=== PATIENT | female | born 1995 | race Caucasian/White ===

== ENCOUNTER 2016-04-26 17:26 | Emergency (ER) | payer BC ==
[~2016-04-26 17:26] MED LIST: ALBU8I INH; AUGM875T PO; AZIT250T3 PO; DOXY10TA PO; MACR100C PO
--- NOTE | 2016-04-26 19:57 | PD ---
HPI Travel History International Travel<30 Days: No Contact w/Intl Traveler<30Days: No Known Affected Area: No History of Present Illness HPI This patient is a 20-year-old 2 para 0010 EDC is July 02, 2016 presently at 30 weeks and 3 days she presents with the chief complaint of preceding decreased movement states however upon arrival the baby is very active no ruptured membranes no vaginal bleeding no cramps no back pain care with Dr. Guzman course significant for nausea and vomiting during the History Past Medical History Narrative Medical No known drug allergies history of asthma and multiple mental disorders Obstetric History Obstetric History Spontaneous AB at 7 weeks Past Surgical History Narrative Surgical Dental surgery Family History Family History: Negative Social History Alcohol Use: No Tobacco Use: No Substance Abuse: No Allergies-Medications (Allergen,Severity, Reaction): Coded Allergies: No Known Allergies (Unverified , 12/08/15) Home Meds Active Scripts Azithromycin 250 Mg Imt728 Mg PO DIRECTED #6 TAB Ref 0 Take 2 tabs (500 mg) on day 1 then 1 tab daily x 4 days. Prov:Terrance Guillen MD 04/02/16 [id number] M1 875 Mg Dif439 Mg PO BID 7 Days Prov:Brian Basilio MD 11/20/15 Diclegis1 Tab 1 Tab Tab2 Tab PO HS 14 Days Prov:Brian Basilio MD 11/20/15 Nitrofurantoin Monohyd Macro (Macrobid)100 Mg Cap1 Tab PO BID #14 CAP Prov:Rene Alfaro MD 11/12/15 Reported Medications Albuterol Sulfate 8 GM Inhaler (Ventolin Hfa)8 Gm Aero2 Puff INH Q4 #1 * SHAKE WELL BEFORE USE * 07/27/13 Review of Systems General / Constitutional: Other (10 point review of systems is negative) Physical Exam Narrative GENERAL: Well-nourished, well-developed patient. Alert oriented 3 and cooperative in no acute distress CARDIOVASCULAR: Regular rate and rhythm without murmurs, gallops, or rubs. RESPIRATORY: Breath sounds equal bilaterally. No accessory muscle use. ABDOMEN/GI: Gravid consistent with 30 weeks' morbidly obese abdomen Gravid to [-] weeks size Fundal Height: [-] GENITOURINARY: Pelvic exam is deferred as the patient has no complaints of labor or ruptured membranes External Genitalia: intact and normal in appearance BUS glands: [-] FHT's: Category: [-] 1 Baseline: [-]130 Reactive: [-] + Variability: [-] Moderate tnit-go-nlnq variability Decels: [-] 0 Data Data Vital Signs Reviewed: Yes Labs Bedside ultrasound is done the baby is breech active positive flexion positive tone Positive breathing Largest pocket is 5.65 x 7.88 Reactive tracing MDM Medical Record Reviewed: Yes (previous record reviewed) Interpretation(s) 20-year-old at 30+ weeks 10 out of 10 biophysical profile Not in labor Most likely perceives decreased movement secondary to an anterior placenta Plan Discharge patient home kick count By mouth fluid hydration Limited activity over the weekend Appointment with Dr. Horner on Friday Diagnosis Diagnosis: Primary Impression: Decreased movement affecting management of in second trimester Additional Impression: 30 weeks gestation of Disposition: 01 DISCHARGE HOME Condition: Stable Patient Instructions: General Instructions, Diet (GEN), Movement (ED) Departure Forms: Tests/Procedures Griselda Fontenot MD Apr 26, 2016 19:57
== END 2016-04-26 22:34 | disposition home or self-care (01) ==
LOC: HOBED 17:26
DX: O36.8130 Decreased fetal movements, third trimester, not applicable or unspecified (principal); Z3A.30 30 weeks gestation of pregnancy
CPT/HCPCS: 76815

== ENCOUNTER 2016-06-03 19:08 | Emergency (ER) | payer BC ==
--- NOTE | 2016-06-03 20:08 | PD ---
HPI Chief Complaint right mid back pain, pubic bone pain Date Seen: Jun 03, 2016 Time Seen: 20:00 Travel History International Travel<30 Days: No Contact w/Intl Traveler<30Days: No Known Affected Area: No History of Present Illness HPI 21 yo at [id number] c/o 3 days of right mid back pain and pubic bone pain. No radiation, denies vaginal bleeding, discharge, dysuria, frequency. Good movement Para: 0 : 2 Miscarriage: 1 History Past Medical History Narrative Medical Mild asthma Past Surgical History Surgical History: No Previous Surgery Family History Family History: Negative Social History Alcohol Use: No Tobacco Use: No Substance Abuse: No Allergies-Medications (Allergen,Severity, Reaction): Coded Allergies: No Known Allergies (Unverified , 12/08/15) Home Meds Active Scripts Azithromycin 250 Mg Pqt260 Mg PO DIRECTED #6 TAB Ref 0 Take 2 tabs (500 mg) on day 1 then 1 tab daily x 4 days. Prov:Terrance Guillen MD 04/02/16 [id number] M1 875 Mg Jds031 Mg PO BID 7 Days Prov:Brian Basilio MD 11/20/15 Diclegis1 Tab 1 Tab Tab2 Tab PO HS 14 Days Prov:Brian Basilio MD 11/20/15 Nitrofurantoin Monohyd Macro (Macrobid)100 Mg Cap1 Tab PO BID #14 CAP Prov:Rene Alfaro MD 11/12/15 Reported Medications Albuterol Sulfate 8 GM Inhaler (Ventolin Hfa)8 Gm Aero2 Puff INH Q4 #1 * SHAKE WELL BEFORE USE * 07/27/13 Review of Systems Except as stated in HPI: all other systems reviewed are Neg Physical Exam Narrative GENERAL: Well-nourished, well-developed patient. SKIN: Warm and dry. HEAD: Normocephalic and atraumatic. EYES: No scleral icterus. No injection or drainage. ENT: No nasal drainage noted. Mucous membranes pink. Airway patent. NECK: Supple, trachea midline. No JVD. CARDIOVASCULAR: Regular rate and rhythm without murmurs, gallops, or rubs. RESPIRATORY: Breath sounds equal bilaterally. No accessory muscle use. BREASTS: Bilateral exam showed no masses , no retractions, no nipple discharge. ABDOMEN/GI: Abdomen soft, non-tender, bowel sounds present, no rebound, no guarding Gravid to [-] weeks size Fundal Height: [-]37 (difficult to ascertain due to habitus) GENITOURINARY: External Genitalia: intact and normal in appearance BUS glands: [-]nl Cervix: [-]posterior Dilatation: [-] closed Effacement: [-] thick Station: [-] high Presentation: [-]vertex Membranes: [intact or ruptured]ballotable Uterine Contractions: [-]absent FHT's: Category: [-] 1 Baseline: [-] 135 Reactive: [-] moderate Variability: [-] good, accels present Decels: [-] absent EXTREMITIES: No cyanosis or edema. BACK: Nontender without obvious deformity. No CVA tenderness. NEUROLOGICAL: Awake and alert. Motor and sensory grossly within normal limits. Five out of 5 muscle strength in all muscle groups. Normal speech. Data Data Vital Signs Reviewed: Yes MDM Plan Discomforts of Followup as scheduled in office Diagnosis Diagnosis: Primary Impression: Pubic bone pain Additional Impressions: 35 weeks gestation of Morbid obesity Disposition: 01 DISCHARGE HOME Lacy Moralez MD Jun 03, 2016 20:08
== END 2016-06-03 20:15 | disposition home or self-care (01) ==
LOC: HOBED 19:08
DX: O26.93 Pregnancy related conditions, unspecified, third trimester (principal); O99.513 Diseases of the respiratory system complicating pregnancy, third trimester; R10.2 Pelvic and perineal pain; J45.909 Unspecified asthma, uncomplicated; Z3A.35 35 weeks gestation of pregnancy
CPT/HCPCS: 59025

== ENCOUNTER 2016-06-16 06:17 | Emergency (ER) | payer BC ==
--- NOTE | 2016-06-16 07:52 | PD ---
HPI Chief Complaint Possible rupture membranes, lower abdominal discomfort Date Seen: Jun 16, 2016 Time Seen: 07:45 Travel History International Travel<30 Days: No Contact w/Intl Traveler<30Days: No Known Affected Area: No History of Present Illness HPI Patient is a 21-year-old 2 para 0 AB 1 at 37-5/7 weeks' gestation who is a patient of Dr. Cervantes. She reports possible leakage of fluid. She is having generalized lower abdominal discomfort which has been increasing over the past several weeks. She reports good movement. No bleeding or irritating vaginal discharge. Para: 0 : 2 Miscarriage: 1 History Past Medical History Medical History: Denies Significant Hx Obstetric History Obstetric History Uncomplicated course Past Surgical History Surgical History: No Previous Surgery Family History Family History: Negative Social History Alcohol Use: No Tobacco Use: No Substance Abuse: No Allergies-Medications (Allergen,Severity, Reaction): Coded Allergies: No Known Allergies (Unverified , 12/08/15) Home Meds Active Scripts Azithromycin 250 Mg Xfx656 Mg PO DIRECTED #6 TAB Ref 0 Take 2 tabs (500 mg) on day 1 then 1 tab daily x 4 days. Prov:Terrance Guillen MD 04/02/16 Amoxicillin & Pot Clavulanate 875 mg Tab (Augmentin 875 mg Tab)875 Mg Ysu865 Mg PO BID 7 Days Prov:Brian Basilio MD 11/20/15 Doxylamine-Pyridoxine (Diclegis)1 Tab Tab2 Tab PO HS 14 Days Prov:Brian Basilio MD 11/20/15 Nitrofurantoin Monohyd Macro (Macrobid)100 Mg Cap1 Tab PO BID #14 CAP Prov:Rene Alfaro MD 11/12/15 Reported Medications Albuterol Sulfate 8 GM Inhaler (Ventolin Hfa)8 Gm Aero2 Puff INH Q4 #1 * SHAKE WELL BEFORE USE * 07/27/13 Review of Systems Except as stated in HPI: all other systems reviewed are Neg Physical Exam Narrative GENERAL: Well-nourished, well-developed patient. SKIN: Warm and dry. HEAD: Normocephalic and atraumatic. EYES: No scleral icterus. No injection or drainage. ENT: No nasal drainage noted. Mucous membranes pink. Airway patent. NECK: Supple, trachea midline. No JVD. CARDIOVASCULAR: Regular rate and rhythm without murmurs, gallops, or rubs. RESPIRATORY: Breath sounds equal bilaterally. No accessory muscle use. BREASTS: Bilateral exam showed no masses , no retractions, no nipple discharge. ABDOMEN/GI: Abdomen soft, non-tender, bowel sounds present, no rebound, no guarding Gravid to [-] weeks size Fundal Height: [-] GENITOURINARY: External Genitalia: intact and normal in appearance BUS glands: [-] Cervix: [-] Dilatation: [-1] Effacement: [-20] Station: [-3-] Presentation: [-] Membranes: [intact Uterine Contractions: [-Rare] FHT's: Category: [1-] Baseline: [-] Reactive: [-] Variability: [-] Decels: [-] EXTREMITIES: No cyanosis or edema. BACK: Nontender without obvious deformity. No CVA tenderness. NEUROLOGICAL: Awake and alert. Motor and sensory grossly within normal limits. Five out of 5 muscle strength in all muscle groups. Normal speech. Data Data Vital Signs Reviewed: Yes MDM Medical Record Reviewed: Yes Narrative Course / MDM Assessment: 37+ week intrauterine with exam ruling out ruptured membranes today. Generalized pelvic discomfort in the third trimester. Plan: Follow up for routine care. Precautions given regarding possible need for return to triage. Diagnosis Diagnosis: Primary Impression: 37 weeks gestation of Additional Impression: Leukorrhea Disposition: 01 DISCHARGE HOME Condition: Good Tucker Middleton MD Jun 16, 2016 07:52
== END 2016-06-16 08:07 | disposition home or self-care (01) ==
LOC: HOBED 06:17
DX: O26.893 Other specified pregnancy related conditions, third trimester (principal); N89.8 Other specified noninflammatory disorders of vagina; Z3A.37 37 weeks gestation of pregnancy
CPT/HCPCS: 59025; 84112

== ENCOUNTER 2016-06-28 05:56 | Inpatient (IN) | payer BC ==
[~2016-06-28] VITALS: Ht 175.3 cm; Wt 128.8 kg
[2016-06-28] VITALS (138 sets, daily range): BP systolic 74–141; BP diastolic 32–114; PULSE 50–197; RESP 18–20; TEMP 98.1–99.5; O2SAT 98–100
[2016-06-28] MEDS ORDERED: LACTATED RINGER'S 1000 ML INJ 1,000 ML IV SCH (06:32)
[2016-06-28] MEDS ORDERED: LACTATED RINGER'S 1000 ML INJ 1,000 ML IV PRN (06:32)
--- NOTE | 2016-06-28 06:40 | HHI.HP ---
HPI Chief Complaint here for induction at 39 plus weeks Date Seen: Jun 28, 2016 Time Seen: 06:30 Travel History International Travel<30 Days: No Contact w/Intl Traveler<30Days: No Known Affected Area: No History of Present Illness HPI 21 yo primaparous patient here for induction at 39 plus weeks doing well with normal Para: 0 : 2 Last Menstrual Period: Jun 28, 2016 Miscarriage: 1 History Past Medical History Medical History: Denies Significant Hx Obstetric History Obstetric History sab x1 Past Surgical History Surgical History: No Previous Surgery Family History Family History: Negative Social History Alcohol Use: No Tobacco Use: No Substance Abuse: No Allergies-Medications (Allergen,Severity, Reaction): Coded Allergies: No Known Allergies (Unverified , 06/16/16) Home Meds Discontinued Reported Medications Albuterol Sulfate 8 GM Inhaler (Ventolin Hfa)8 Gm Aero2 Puff INH Q4 #1 * SHAKE WELL BEFORE USE * 07/27/13 Discontinued Scripts Azithromycin 250 Mg Xpp713 Mg PO DIRECTED #6 TAB Ref 0 Take 2 tabs (500 mg) on day 1 then 1 tab daily x 4 days. Prov:Terrance Guillen MD 04/02/16 Amoxicillin & Pot Clavulanate 875 mg Tab (Augmentin 875 mg Tab)875 Mg Ign738 Mg PO BID 7 Days Prov:Brian Basilio MD 11/20/15 Doxylamine-Pyridoxine (Diclegis)1 Tab Tab2 Tab PO HS 14 Days Prov:Brian Basilio MD 11/20/15 Nitrofurantoin Monohyd Macro (Macrobid)100 Mg Cap1 Tab PO BID #14 CAP Prov:Rene Alfaro MD 11/12/15 Review of Systems Except as stated in HPI: all other systems reviewed are Neg Physical Exam Narrative GENERAL: Well-nourished, well-developed patient. SKIN: Warm and dry. HEAD: Normocephalic and atraumatic. EYES: No scleral icterus. No injection or drainage. ENT: No nasal drainage noted. Mucous membranes pink. Airway patent. NECK: Supple, trachea midline. No JVD. CARDIOVASCULAR: Regular rate and rhythm without murmurs, gallops, or rubs. RESPIRATORY: Breath sounds equal bilaterally. No accessory muscle use. BREASTS: Bilateral exam showed no masses , no retractions, no nipple discharge. ABDOMEN/GI: Abdomen soft, non-tender, bowel sounds present, no rebound, no guarding Gravid to [-] weeks size Fundal Height: [-] GENITOURINARY: External Genitalia: intact and normal in appearance BUS glands: [-] Cervix: [-] Dilatation: [-] Effacement: [-] Station: [-] Presentation: [-] Membranes: [intact or ruptured] Uterine Contractions: [-] FHT's: Category: [-] Baseline: [-] Reactive: [-] Variability: [-] Decels: [-] EXTREMITIES: No cyanosis or edema. BACK: Nontender without obvious deformity. No CVA tenderness. NEUROLOGICAL: Awake and alert. Motor and sensory grossly within normal limits. Five out of 5 muscle strength in all muscle groups. Normal speech. Data Data Vital Signs Reviewed: Yes Orders Admit To Inpatient (06/28/16 ) Code Status (06/28/16 06:32) Vital Signs (Adult) .Per protocol (06/28/16 06:32) ^ Heart (06/28/16 06:32) ^ Amnioinfusion (06/28/16:32) Urinary Catheter Management .ONCE (06/28/16 06:32) Lactated Ringer's 1000 Ml Inj (Lr 1000 M (06/28/16 06:32) Lactated Ringer's 1000 Ml Inj (Lr 1000 M (06/28/16 06:32) Sodium Chlorid 0.9% 500 Ml Inj (Ns 500 M (06/28/16 06:45) Sodium Chlor 0.9% 1000 Ml Inj (Ns 1000 M (06/28/16 06:52) Lidocaine 1% Inj (50 Ml) (Xylocaine 1% I (06/28/16 06:45) Citric Acid-Sodium Citrate Liq (Bicitra (06/28/16 06:45) Fentanyl Inj (Fentanyl Inj) (06/28/16 06:45) Fentanyl Inj (Fentanyl Inj) (06/28/16 06:45) Complete Blood Count With Diff (06/28/16 06:32) Hold Clot (06/28/16 06:32) Abo/Rh Blood Type (06/28/16 06:32) Urinalysis - C+S If Indicated (06/28/16 06:32) Resp Oxygen Non Rebreathe Mask (06/28/16 ) ^ Epidural / Intrathecal Infus (06/28/16 06:32) Oxytocin 30 Units-500ml Premix (Pitocin (06/28/16 06:45) Lidocaine 1% Inj (50 Ml) (Xylocaine 1% I (06/28/16 06:45) Light Mineral Oil (Muri-Lube Oil) (06/28/16 06:45) Inpatient Certification (06/28/16 ) Specimen To Be Collected PRN (06/28/16 06:32) ^ Non Stress Test (06/28/16 06:32) Response To Medication .Post New Med Administration, Reaction (06/28/16 06:32) ^ Discontinue Medication (06/28/16 06:32) Oxytocin Drip (2-2-30) (06/28/16 06:45) Assessment/Plan Problem List: (1) 39 weeks gestation of Assessment and Plan induction GBS negative Discharge Planning pit and AROM Damion Guzman MD Jun 28, 2016 06:40
[2016-06-28] MEDS ORDERED: OXYTOCIN 30 UNITS-500ML PREMIX 500 ML IV ONE (06:45)
[2016-06-28] MEDS ORDERED: LIDOCAINE HCL 1% 50 ML VIAL INFIL PRN (06:45)
[2016-06-28] MEDS ORDERED: CITRIC ACID-SODIUM CITRATE LIQ 30 ML UDC PO SCH (06:45)
[2016-06-28] MEDS ORDERED: OXYTOCIN 30 UNITS-500ML PREMIX 500 ML IV SCH (06:45)
[2016-06-28] MEDS ORDERED: SODIUM CHLORID 0.9% 500 ML INJ 500 ML IV PRN (06:45)
[2016-06-28] MEDS ORDERED: MINERAL OIL 10 ML VIAL TOPICAL PRN (06:45)
[2016-06-28] MEDS ORDERED: LIDOCAINE HCL 1% 50 ML VIAL I-DERMAL PRN (06:45)
[2016-06-28] MEDS ORDERED: SODIUM CHLOR 0.9% 1000 ML INJ 1,000 ML IV PRN (06:52)
[2016-06-28 07:31] LABS: AUTOMATED NEUTROPHIL # 5.3 TH/MM3 (1.8-7.7); BASOPHIL % 0.4 % (0.0-2.0); EOSINOPHIL # 0.1 TH/MM3 (0-0.4); EOSINOPHIL % 1.6 % (0.0-4.0); HEMATOCRIT 35.2 % (35.0-46.0); HEMO FLAGS DIFF FINAL; LYMPH % 28.4 % (9.0-44.0); LYMPHOCYTE # 2.4 TH/MM3 (1.0-4.8); MEAN CELL VOLUME 82.9 FL (80.0-100.0); MEAN CORPUSCULAR HEMOGLOBIN 27.6 PG (27.0-34.0); MEAN CORPUSCULAR HGB CONC 33.3 % (32.0-36.0); MONO % 7.3 % (0.0-8.0); NEUT % 62.3 % (16.0-70.0); PLATELET COUNT 200 TH/MM3 (150-450); RED BLOOD COUNT 4.25 MIL/MM3 (4.00-5.30); RED CELL DISTRIBUTION WIDTH 14.9 % (11.6-17.2); WHITE BLOOD COUNT 8.5 TH/MM3 (4.0-11.0)
[2016-06-28 08:50] LABS: BACTERIA, URINE MOD /hpf; BLOOD, URINE NEG (NEG); COMMENT (UR) CULTURE INDICATED; CULTURE IF INDICATED CULTURE INDICATED; GLUCOSE,URINE NEG (NEG); KETONE, URINE NEG (NEG); NITRITE,URINE NEG (NEG); SQUAMOUS EPITHELIAL CELL URINE 56 /hpf (0-5); URINE COLOR YELLOW (YELLW/STRAW)
[2016-06-28] MEDS ORDERED: fentaNYL 2MCG-BUPIV 0.125% INJ 100 ML ONE (13:49)
[2016-06-28] MEDS ORDERED: DO NOT ADMINISTER ANTICOAGULANTS XX PRN (15:30)
[2016-06-28] MEDS ORDERED: fentaNYL 2MCG-BUPIV 0.125% 100 ML EPIDURAL SCH (15:30)
[2016-06-28] MEDS ORDERED: ePHEDrine/NS 25 MG/5 ML SYR IV PRN (15:30)
[2016-06-28] MEDS ORDERED: NO SYSTEM NARCOTICS XX PRN (15:30)
--- NOTE | 2016-06-28 16:56 | PD.LABORPN ---
Subjective Subjective doing well has epidural now Objective Vital Signs Vital Signs Date Time Temp Pulse Resp B/P Pulse Ox O2 Delivery O2 Flow Rate FiO2 06/28/16 16:22 59 108/59 06/28/16 16:19 66 120/57 06/28/16 16:16 64 108/69 06/28/16 16:15 80 06/28/16 16:13 80 83/52 06/28/16 16:10 73 122/57 06/28/16 16:10 73 06/28/16 16:07 134 118/61 06/28/16 16:05 78 06/28/16 16:04 80 125/54 06/28/16 16:01 67 127/59 06/28/16 16:00 67 06/28/16 15:58 72 108/78 06/28/16 15:55 116/100 06/28/16 15:55 56 06/28/16 15:55 74 06/28/16 15:52 62 06/28/16 15:52 124/55 06/28/16 15:50 75 06/28/16 15:49 132/67 06/28/16 15:49 71 06/28/16 15:46 65 06/28/16 15:46 113/73 06/28/16 15:45 75 06/28/16 15:43 76 114/57 06/28/16 15:40 78 06/28/16 15:40 84 102/71 06/28/16 15:37 78 93/81 06/28/16 15:35 76 06/28/16 15:34 95 115/79 06/28/16 15:31 74 115/65 06/28/16 15:30 66 06/28/16 15:28 85 103/47 06/28/16 15:25 61 121/69 06/28/16 15:25 92 06/28/16 15:22 74 115/56 06/28/16 15:20 86 06/28/16 15:19 82 110/67 06/28/16 15:16 86 113/54 06/28/16 15:15 75 06/28/16 15:13 98/53 06/28/16 15:13 96 06/28/16 15:10 60 06/28/16 15:10 84 108/53 06/28/16 15:08 61 110/32 06/28/16 15:05 62 06/28/16 15:04 97 141/114 06/28/16 15:01 77 127/59 06/28/16 15:00 95 06/28/16 14:58 91 100/59 06/28/16 14:55 96 06/28/16 14:55 66 106/52 06/28/16 14:52 66 112/59 06/28/16 14:50 77 06/28/16 14:49 101 105/57 06/28/16 14:46 72 104/55 06/28/16 14:45 94 06/28/16 14:43 73 108/55 06/28/16 14:40 92 06/28/16 14:40 88 109/51 06/28/16 14:37 92 105/55 06/28/16 14:35 103 06/28/16 14:34 98.1 100 18 103/50 06/28/16 14:31 65 108/41 06/28/16 14:30 78 06/28/16 14:28 104 107/55 06/28/16 14:25 96 88/59 06/28/16 14:25 79 06/28/16 14:22 64 93/50 06/28/16 14:20 84 98 06/28/16 14:19 85 116/54 06/28/16 14:16 80 112/55 06/28/16 14:15 99 100 06/28/16 14:13 84 131/60 06/28/16 14:10 76 06/28/16 14:09 79 120/44 06/28/16 14:01 71 104/45 06/28/16 13:55 106 06/28/16 13:47 67 112/52 06/28/16 13:31 197 126/109 06/28/16 13:16 59 108/52 06/28/16 13:01 59 108/62 06/28/16 12:48 52 109/62 06/28/16 12:40 98.1 20 06/28/16 12:31 62 120/73 06/28/16 12:16 55 122/73 06/28/16 12:01 59 114/63 06/28/16 11:46 50 115/58 06/28/16 11:31 64 110/62 06/28/16 11:16 64 119/67 06/28/16 11:01 60 107/48 06/28/16 10:46 68 116/53 06/28/16 10:31 57 109/61 06/28/16 10:15 98.2 06/28/16 10:01 59 99/52 06/28/16 09:46 70 87/65 06/28/16 09:31 68 98/48 06/28/16 09:16 59 105/54 06/28/16 09:01 65 98/60 06/28/16 08:55 86 86/52 Objective Pelvic Exam: Cervix: [-] Dilatation: 1 Effacement: [-] Station: [-] Presentation: vtx Membranes: AROM Uterine Contractions: [-] FHT's: Category: 1 Baseline: [-] Reactive: [-] Variability: [-] Decels: [-] Assessment/Plan Problem List: (1) 39 weeks gestation of Damion Guzman MD Jun 28, 2016 16:56
[2016-06-29] VITALS (43 sets, daily range): BP systolic 94–126; BP diastolic 42–87; PULSE 56–168; RESP 16–20; TEMP 97.8–100; O2SAT 87–99
--- NOTE | 2016-06-29 00:44 | PD.LABORPN ---
Subjective Subjective patient has reassuring FHT and has fallen off the labor curve. We discussed CS for arrest of dilatation but patient and family want to wait. I am ok with plan of expectant management with this reassuring strip Objective Vital Signs Vital Signs Date Time Temp Pulse Resp B/P Pulse Ox O2 Delivery O2 Flow Rate FiO2 06/29/16 00:00 20 06/28/16 23:46 63 107/65 06/28/16 23:31 66 93/41 06/28/16 23:30 20 06/28/16 23:16 61 93/38 06/28/16 23:01 66 103/38 06/28/16 22:59 99.5 06/28/16 22:46 71 101/46 06/28/16 22:31 75 105/50 06/28/16 22:16 78 133/73 06/28/16 22:01 77 114/57 06/28/16 22:00 98.7 18 06/28/16 21:46 65 107/45 06/28/16 21:31 65 107/47 06/28/16 21:30 18 06/28/16 21:16 72 117/59 06/28/16 21:15 18 06/28/16 21:01 75 110/57 06/28/16 21:00 18 06/28/16 20:46 80 116/62 06/28/16 20:45 18 06/28/16 20:31 68 106/56 06/28/16 20:30 18 06/28/16 20:17 102 113/37 06/28/16 19:43 18 06/28/16 19:43 98.2 06/28/16 19:31 74 124/59 06/28/16 18:47 80 128/53 06/28/16 18:45 71 103/56 06/28/16 18:31 147 74/43 06/28/16 18:16 87 87/44 06/28/16 17:46 83 101/62 06/28/16 17:31 71 115/63 06/28/16 17:25 99.4 18 06/28/16 17:16 68 115/51 06/28/16 17:01 71 115/83 06/28/16 16:46 121/45 Objective Pelvic Exam: Cervix: [-] Dilatation: [-] Effacement: [-] Station: [-] Presentation: [-] Membranes: [intact or ruptured] Uterine Contractions: [-] FHT's: Category: [-] Baseline: [-] Reactive: [-] Variability: [-] Decels: [-] Assessment/Plan Problem List: (1) 39 weeks gestation of Damion Guzman MD Jun 29, 2016 00:44
[2016-06-29] MEDS ORDERED: BUPIVACAINE HCL PF 0.25% 10 ML VIAL ONE (02:16)
[2016-06-29] MEDS ORDERED: OXYTOCIN 10 UNIT/ML AMP ONE ×2 (04:22→04:23)
[2016-06-29] MEDS ORDERED: ceFAZolin INJ 1,000 MG VIAL ONE (04:25)
[2016-06-29] MEDS ORDERED: MEPERIDINE HCL 50 MG/ML VIAL ONE (04:35)
[2016-06-29] MEDS ORDERED: MORPHINE SULFATE PF 5 MG/10 ML VIAL ONE (05:18)
--- NOTE | 2016-06-29 05:55 | PD.OB.DELI ---
Procedure Note Section Procedure Pre Op Diagnosis: (1) 39 weeks gestation of Post Op Diagnosis: (1) 39 weeks gestation of Performed by Damion Guzman Procedure: Primary Low Transverse Sec Indication for delivery: Other (arrest of dilatation) Informed consent obtained: For anesthesia, For procedure Confirmed correct: Patient, Procedure, Time-out taken Anesthesia: Epidural Urinary catheter: Inserted using sterile technique, To dependent drainage Sterile preparation: Duraprep Position: Supine with wedge to right side Operative Features Skin Incision: Pfannenstiel Uterine Incision: Low transverse w/knife / blunt ext Membranes Ruptured: Previously Presentation: Occiput anterior Delivery of infant: Uneventful : Female, Single Weight: 6# 9 oz Status of : Viable Estimated blood loss: 500 Procedure tolerated: Well Maternal Condition: Stable Condition: Stable Damion Guzman MD Jun 29, 2016 05:55
[2016-06-29] MEDS ORDERED: SODIUM CHLORIDE 0.9% FLUSH 5 ML FLUSH IV PRN (06:00)
[2016-06-29] MEDS ORDERED: SIMETHICONE 80 MG CHEWABLE TAB PO PRN (06:00)
[2016-06-29] MEDS ORDERED: KETOROLAC TROMETHAMINE 60 MG/2 ML (IM) VIAL IM PRN (06:00)
[2016-06-29] MEDS ORDERED: OXYTOCIN 30 UNITS-500ML PREMIX 500 ML IV ONE (06:00)
[2016-06-29] MEDS ORDERED: EPIDURAL-DIPHENHYDRAMINE HCL 50 MG CAP PO PRN (08:15)
[2016-06-29] MEDS ORDERED: EPIDURAL-NALOXONE HCL 0.4 MG/ML AMP IV PRN (08:15)
[2016-06-29] MEDS ORDERED: EPIDURAL-DIPHENHYDRAMINE HCL 50 MG/ML VIAL IV PUSH PRN (08:15)
[2016-06-29] MEDS ORDERED: EPIDURAL-DO NOT ADMINISTER ANTICOAGULANTS XX PRN (08:15)
[2016-06-29] MEDS ORDERED: EPIDURAL-NO SYSTEMIC NARCOTICS XX PRN (08:15)
[2016-06-29] MEDS ORDERED: PROMETHAZINE HCL 25 MG TAB PO PRN (08:30)
[2016-06-29] MEDS ORDERED: SODIUM CHLORIDE 0.9% FLUSH 5 ML FLUSH IV SCH (09:00)
[2016-06-29] MEDS ORDERED: LACTATED RINGER'S 1000 ML INJ 1,000 ML IV SCH (10:50)
[2016-06-29] MEDS: PANTOPRAZOLE SODIUM 40 MG VIAL IV PUSH SCH (11:16)
[2016-06-29] MEDS ORDERED: PROCHLORPERAZINE 25 MG SUPP RECTAL PRN (12:00)
[2016-06-29] MEDS ORDERED: OXYTOCIN 30 UNITS-500ML PREMIX 500 ML IV PRN (16:00)
[2016-06-29] MEDS: IBUPROFEN 600 MG TAB PO PRN (21:54)
[2016-06-29] MEDS: oxyCODONE/ACETAMINOPHEN 5 MG/325 MG TAB PO PRN (21:54)
[2016-06-30] MEDS: IBUPROFEN 600 MG TAB PO PRN ×3 (05:27→17:58)
[2016-06-30] MEDS: oxyCODONE/ACETAMINOPHEN 5 MG/325 MG TAB PO PRN ×3 (05:27→17:59)
[2016-06-30 06:58] LABS: AUTOMATED NEUTROPHIL # 9.3 TH/MM3 (1.8-7.7); BASOPHIL % 0.1 % (0.0-2.0); EOSINOPHIL # 0.1 TH/MM3 (0-0.4); EOSINOPHIL % 0.8 % (0.0-4.0); HEMATOCRIT 24.1 % (35.0-46.0); HEMO FLAGS DIFF FINAL; LYMPH % 13.9 % (9.0-44.0); LYMPHOCYTE # 1.7 TH/MM3 (1.0-4.8); MEAN CELL VOLUME 83.1 FL (80.0-100.0); MEAN CORPUSCULAR HEMOGLOBIN 27.8 PG (27.0-34.0); MEAN CORPUSCULAR HGB CONC 33.4 % (32.0-36.0); MONO % 8.2 % (0.0-8.0); PLATELET COUNT 167 TH/MM3 (150-450); WHITE BLOOD COUNT 12.1 TH/MM3 (4.0-11.0)
[2016-06-30 08:00] VITALS: BP 101/58; PULSE 71; RESP 16; TEMP 97.8
--- NOTE | 2016-06-30 10:15 | HHI.OB ---
Subjective Post Day: 1 Remarks doing well post CS. questionable urine production but patient has trouble getting urine in hat so probably estimate is low Objective Vitals/I&O Vital Signs Date Time Temp Pulse Resp B/P Pulse Ox O2 Delivery O2 Flow Rate FiO2 06/29/16 18:30 18 06/29/16 17:11 18 06/29/16 17:00 99.8 91 18 114/57 98 06/29/16 16:30 16 06/29/16 15:30 18 06/29/16 14:30 18 06/29/16 12:56 18 06/29/16 12:08 99.1 77 18 99 06/29/16 12:08 118/67 06/29/16 11:30 16 06/29/16 10:30 18 Objective Remarks GENERAL: Well-nourished, well-developed patient. . ABDOMEN/GI: Abdomen soft, non-tender. Fundus: Firm, non-tender at umbilicus. GENITOURINARY: Light to moderate bleeding. EXTREMITIES: No cyanosis or edema, non-tender, without signs of DVT. Medications and IVs Current Medications Medications (Trade) Dose Ordered Sig/Eugene Route Start Time Stop Time Status Last Admin (NS Flush) 2 ml BID IV 06/29/16 09:00 (NS Flush) 2 ml UNSCH PRN IV 06/29/16 06:00 (Mylicon Chew) 80 mg QID PRN PO 06/29/16 06:00 (Motrin) 600 mg Q6H PRN PO 06/29/16 06:00 06/30/16 05:27 (Percocet 5-325 Mg) 1 tab Q4H PRN PO 06/29/16 06:00 06/29/16 21:54 (Percocet 5-325 Mg) 2 tab Q4H PRN PO 06/29/16 06:00 06/30/16 05:27 (M-M-R Ii Inj) 0.5 ml ONCE ONCE SQ 06/30/16 16:00 06/30/16 16:01 (Boostrix Inj) 0.5 ml ONCE ONCE IM 06/30/16 16:00 06/30/16 16:01 (Phenergan) 25 mg Q4H PRN PO 06/29/16 08:30 3/11/17 08:59 (Compazine Supp) 25 mg Q6H PRN RECTAL 06/29/16 12:00 (Protonix Inj) 40 mg Q24H IV PUSH 06/29/16 11:00 06/29/16 11:16 Assessment/Plan Problem List: (1) 39 weeks gestation of Assessment and Plan S/P CS Discharge Planning DC home ppd#3 pt requesting 07/02 Damion Guzman MD Jun 30, 2016 10:15
[2016-06-30] MEDS: PANTOPRAZOLE SODIUM 40 MG VIAL IV PUSH SCH (11:00)
[2016-06-30 15:00] VITALS: BP 107/63; PULSE 80; RESP 18; TEMP 98.9
[2016-06-30] MEDS ORDERED: MEASLES, MUMPS, RUBELLA VACCINE 0.5 ML VIAL SQ ONE (16:00)
[2016-06-30] MEDS ORDERED: DIPHTH/TETANUS/ACEL PERTUSSIS (BOOSTER) 0.5 ML VIAL/PFS IM ONE (16:00)
[2016-06-30 19:30] VITALS: BP 126/67; PULSE 79; RESP 20; TEMP 98.2
[2016-07-01] MEDS: oxyCODONE/ACETAMINOPHEN 5 MG/325 MG TAB PO PRN ×3 (01:07→17:11)
[2016-07-01] MEDS: IBUPROFEN 600 MG TAB PO PRN ×3 (01:08→17:12)
--- NOTE | 2016-07-01 07:54 | HHI.OB ---
Subjective Post Day: 2 Remarks doing well, incision leaking Objective Vitals/I&O Vital Signs Date Time Temp Pulse Resp B/P Pulse Ox O2 Delivery O2 Flow Rate FiO2 06/30/16 19:30 98.2 79 20 126/67 06/30/16 15:00 98.9 80 18 06/30/16 15:00 107/63 06/30/16 08:00 97.8 71 16 101/58 Objective Remarks GENERAL: Well-nourished, well-developed patient. . ABDOMEN/GI: Abdomen soft, non-tender. Fundus: Firm, non-tender at umbilicus. GENITOURINARY: Light to moderate bleeding. EXTREMITIES: No cyanosis or edema, non-tender, without signs of DVT. Medications and IVs Current Medications Medications (Trade) Dose Ordered Sig/Eugene Route Start Time Stop Time Status Last Admin (NS Flush) 2 ml BID IV 06/29/16 09:00 (NS Flush) 2 ml UNSCH PRN IV 06/29/16 06:00 (Mylicon Chew) 80 mg QID PRN PO 06/29/16 06:00 (Motrin) 600 mg Q6H PRN PO 06/29/16 06:00 07/01/16 01:08 (Percocet 5-325 Mg) 1 tab Q4H PRN PO 06/29/16 06:00 07/01/16 01:07 (Percocet 5-325 Mg) 2 tab Q4H PRN PO 06/29/16 06:00 06/30/16 17:59 (Phenergan) 25 mg Q4H PRN PO 06/29/16 08:30 06/29/16 08:59 (Compazine Supp) 25 mg Q6H PRN RECTAL 06/29/16 12:00 (Protonix Inj) 40 mg Q24H IV PUSH 06/29/16 11:00 06/29/16 11:16 Assessment/Plan Problem List: (1) 39 weeks gestation of Assessment and Plan S/P CS Discharge Planning DC home ppd#3 pt requesting 07/02 Damion Guzman MD Jul 01, 2016 07:54
[2016-07-01 08:00] VITALS: BP 116/73; PULSE 16; PULSE 80; RESP 16; TEMP 98
[2016-07-01] MEDS: PANTOPRAZOLE SODIUM 40 MG VIAL IV PUSH SCH (09:51)
[2016-07-01 21:45] VITALS: BP 119/73; PULSE 73; RESP 20; TEMP 98.3
[2016-07-02] MEDS: IBUPROFEN 600 MG TAB PO PRN ×2 (00:09→11:13)
[2016-07-02] MEDS: oxyCODONE/ACETAMINOPHEN 5 MG/325 MG TAB PO PRN ×3 (00:10→11:13)
[2016-07-02 08:00] VITALS: BP 114/60; PULSE 70; RESP 18; TEMP 98.3
--- NOTE | 2016-07-02 10:37 | HHI.OB ---
Subjective Post Day: 3 Remarks doing well Objective Vitals/I&O Vital Signs Date Time Temp Pulse Resp B/P Pulse Ox O2 Delivery O2 Flow Rate FiO2 07/02/16 08:00 114/60 07/02/16 08:00 98.3 70 18 07/01/16 21:45 98.3 73 20 119/73 Objective Remarks GENERAL: Well-nourished, well-developed patient. . ABDOMEN/GI: Abdomen soft, non-tender. Fundus: Firm, non-tender at umbilicus. GENITOURINARY: Light to moderate bleeding. EXTREMITIES: No cyanosis or edema, non-tender, without signs of DVT. Medications and IVs Current Medications Medications (Trade) Dose Ordered Sig/Eugene Route Start Time Stop Time Status Last Admin (NS Flush) 2 ml BID IV 06/29/16 09:00 (NS Flush) 2 ml UNSCH PRN IV 06/29/16 06:00 (Mylicon Chew) 80 mg QID PRN PO 06/29/16 06:00 (Motrin) 600 mg Q6H PRN PO 06/29/16 06:00 07/02/16 00:09 (Percocet 5-325 Mg) 1 tab Q4H PRN PO 06/29/16 06:00 07/01/16 09:35 (Percocet 5-325 Mg) 2 tab Q4H PRN PO 06/29/16 06:00 07/02/16 05:17 (Phenergan) 25 mg Q4H PRN PO 06/29/16 08:30 06/29/16 08:59 (Compazine Supp) 25 mg Q6H PRN RECTAL 06/29/16 12:00 (Protonix Inj) 40 mg Q24H IV PUSH 06/29/16 11:00 06/29/16 11:16 Assessment/Plan Problem List: (1) 39 weeks gestation of Assessment and Plan S/P CS Discharge Planning DC home ppd#3 today Damion Guzman MD Jul 02, 2016 10:37
[2016-07-02] MEDS ORDERED: OXYC1TAB63 PO (10:38)
--- NOTE | 2016-07-02 10:39 | HHI.DCPOC ---
Discharge Care Plan Diagnosis: (1) delivery delivered Report Symptoms to Your Doctor -Temperate above 100.5 degrees -Redness, of incision or excessive or foul smelling drainage -Unusual pain or calf pain -Increased vaginal bleeding -Painful or difficulty urinating -Feelings of extreme sadness or anxiety after 2 weeks Goals to Promote Your Health * To prevent worsening of your condition and complications * To maintain your health at the optimal level Directions to Meet Your Goals Take your medications as prescribed Follow your dietary instruction Follow activity as directed Ensure plenty of rest for recovery Drink fluids for hydration Keep your appointments as scheduled Take your immunizations and boosters as scheduled If your symptoms worsen call your PCP, if no PCP go to Urgent Care Center or Emergency Room Smoking is Dangerous to Your Health. Avoid second hand smoke Call the 24-hour crisis hotline for domestic abuse at Damion Guzman MD Jul 02, 2016 10:39
--- NOTE | 2016-07-02 10:43 | HHI.DS ---
Admission Date Jun 28, 2016 at 05:56 Discharge Date: Jul 02, 2016 Admitting Diagnosis Diagnosis: (1) delivery delivered Diagnosis: Principal : Primary : Female, Single Brief History 21 yo primaparous patient here for induction at 39 plus weeks doing well with normal Hospital Course doing well after CS Pt Condition on Discharge: Good Discharge Disposition: Discharge Home Discharge Instructions Diet Instructions: As Tolerated, No Restrictions Activities You Can Perform: Regular-No Restrictions, Pelvic Rest Activities to Avoid: Driving for 24 hrs Follow up Referrals: [place] [facility] - 2 Weeks @ [facility] with Damion Guzman MD New Medications: Oxycodone-Acetaminophen (Oxycodone-Acetaminophen) 5-325 mg Tab 2 TAB PO Q4H PRN PAIN SCALE 6 TO 10 #30 TAB Damion Guzman MD Jul 02, 2016 10:43
--- NOTE | 2016-07-03 08:25 | MP ---
cc: RYAN GUZMAN M.D. DATE OF SURGERY: 06/29/2016 PROCEDURE Primary low transverse section. PREOPERATIVE DIAGNOSIS Arrest of dilatation at 5 cm. POSTOPERATIVE DIAGNOSIS Arrest of dilatation at [address] Ryan Guzman ESTIMATED BLOOD LOSS 500 cc. COMPLICATIONS None. FINDINGS Live female infant, Apgars 9 and 9, weight 6 pounds 10 ounces. PROCEDURE IN DETAIL After informed consent the patient was taken to the operating room where she was placed under epidural anesthesia by Dr. Ingram. She had her epidural anesthesia dosed and was under adequate anesthesia. Estrada catheter was draining well. A timeout was taken for the procedure and the patient. After everyone agreed and the instruments were all available and the patient was prepped and draped, a Pfannenstiel skin incision was carried sharply through the skin to the fascia. The fascia was nicked in the midline. The incision was extended laterally using Flynn scissors. The rectus muscle was dissected away from the fascia with sharp and blunt dissection. The rectus muscle was in the midline. The peritoneum was entered bluntly with a finger. The incision was extended laterally using blunt traction. A bladder flap was created by dissecting the bladder off the lower uterine segment. A low transverse uterine incision was then made, carried sharply into the uterine cavity. Clear fluid was noted. The incision was extended laterally using blunt traction. A hand was placed into the uterus. The infant's head was guided through the incision. Caput was noted and the 's head was socked down in the pelvis. This was pulled up out of the pelvis. Using fundal pressure the infant delivered. The shoulders were delivered and the nose and mouth were suctioned well. The cord was clamped and cut and the was handed to pediatrics in attendance. Cord blood was collected. The placenta was delivered manually. The uterus was exteriorized and wiped free from all remaining products of conception. The uterine incision was then closed with a running locked stitch of chromic suture. Good hemostasis was achieved. There was a laceration that went down into the vagina on the left side. This had been closed before the other incision was closed. An imbricating layer was placed for strength and hemostasis. The uterus was placed back in the abdomen, noted to be hemostatic including the laceration into the vagina. At this point the fascia was closed with Vicryl suture. The subcutaneous tissue was closed with Vicryl suture and the skin was closed with subcuticular stitch of Monocryl. The patient tolerated the procedure well. She was taken to the recovery room in stable condition. Lap and instrument counts were reported as correct and each layer was hemostatic prior to closure. MD WOL[place]ANG [place]/SEUN /6:48 AM /7:15 AM
== END 2016-07-02 14:53 | disposition home or self-care (01) | DRG 766 ==
LOC: H2EA 05:56 → H1EA 06-29 07:34
PROVIDERS: ADMIT Obstetrics & Gynecology; ATTEND Obstetrics & Gynecology
PROC: 10907ZC Drainage of Amniotic Fluid, Therapeutic from Products of Conception, Via Natural or Artificial Opening (ICD-10-PCS; 2016-06-28)
PROC: 10D00Z1 Extraction of Products of Conception, Low, Open Approach (ICD-10-PCS; principal; 2016-06-29)
DX: O62.0 Primary inadequate contractions (principal); O61.0 Failed medical induction of labor; Z37.0 Single live birth; Z3A.39 39 weeks gestation of pregnancy
CPT/HCPCS: 81001; 85025; 86900; 86901; 87086; C9113; J0690; J1885; J2175; J2274; J2590; J7120; Q0169

== ENCOUNTER 2016-07-05 00:07 | Emergency (ER) | payer BC ==
[~2016-07-05] VITALS: Ht 175.3 cm; Wt 126.0 kg
[~2016-07-05 00:07] MED LIST changes: -ALBU8I INH; -AUGM875T PO; -AZIT250T3 PO; -DOXY10TA PO; -MACR100C PO; +OXYC1TAB63 PO
[2016-07-05 00:08] VITALS: BP 138/64; PULSE 112; RESP 18; TEMP 98.3; O2SAT 98
[2016-07-05] MEDS ORDERED: SODIUM CHLOR 0.9% 1000 ML INJ 1,000 ML IV ONE (01:16)
[2016-07-05] MEDS ORDERED: SODIUM CHLORIDE 0.9% FLUSH 5 ML FLUSH IVF PRN (01:30)
[2016-07-05 01:42] LABS: AUTOMATED NEUTROPHIL # 4.8 TH/MM3 (1.8-7.7); BASOPHIL # 0.1 TH/MM3 (0-0.2); BASOPHIL % 0.7 % (0.0-2.0); EOSINOPHIL # 0.3 TH/MM3 (0-0.4); EOSINOPHIL % 3.7 % (0.0-4.0); HEMATOCRIT 27.9 % (35.0-46.0); HEMO FLAGS AUTO DIFF; LYMPH % 25.6 % (9.0-44.0); MEAN CELL VOLUME 82.5 FL (80.0-100.0); MEAN CORPUSCULAR HEMOGLOBIN 26.5 PG (27.0-34.0); MEAN CORPUSCULAR HGB CONC 32.1 % (32.0-36.0); MONO % 9.3 % (0.0-8.0); NEUT % 60.7 % (16.0-70.0); PLATELET COUNT 277 TH/MM3 (150-450); RED BLOOD COUNT 3.38 MIL/MM3 (4.00-5.30); RED CELL DISTRIBUTION WIDTH 14.8 % (11.6-17.2); WHITE BLOOD COUNT 7.9 TH/MM3 (4.0-11.0)
--- NOTE | 2016-07-05 01:54 | PD ---
HPI Chief Complaint: Edema Time Seen by Provider: 01:02 Travel History International Travel<30 days: No Contact w/Intl Traveler<30days: No Traveled to known affect area: No History of Present Illness HPI Patient is a 21-year-old female who presents to emergency room with complaints of abdominal pain with increased vaginal clots with lower extremity swelling. Patient reports that she had a performed by Dr. Manning on Friday, reports that she had no complications from her surgery as well as her . Patient reports that she is discharged from the hospital on Friday with a prescription for Percocets. Patient reports that she was told that if she passed large clots, she was to come to the emergency room for evaluation. Patient reports that she passed 3 large clots tonight starting around 10 PM tonight. Patient reports increased lower abdominal pain and cramping with her symptoms. Patient reports that she has also noticed increased swelling to her legs bilaterally. Patient denies any fevers or chills, denies chest pain or shortness breath. PFSH Past Medical History Asthma: Yes Bipolar Disorder: Yes Anxiety: Yes Depression: Yes Diminished Hearing: No Psychiatric: Yes (PTSD, PANIC DISORDER) Ulcer: Yes Tetanus Vaccination: < 5 Years Influenza Vaccination: No ?: Not LMP: DELIVERED 06/29/16 : 2 Para: 1 Miscarriage: 1 Past Surgical History Section: Yes Oral Surgery: Yes (wisdom teeth removal ) Social History Alcohol Use: No Tobacco Use: No Substance Use: No Allergies-Medications (Allergen,Severity, Reaction): Coded Allergies: No Known Allergies (Unverified , 07/05/16) Reported Meds & Prescriptions Reported Meds & Active Scripts Active Macrobid (Nitrofurantoin Monoh/Nitrofur Macro) 100 Mg Cap 100 Mg PO BID 10 Days Oxycodone-Acetaminophen 5-325 mg Tab 2 Tab PO Q4H PRN Review of Systems General / Constitutional: No: Fever Eyes: No: Visual changes HENT: No: Headaches Cardiovascular: No: Chest Pain or Discomfort Respiratory: No: Shortness of Breath Gastrointestinal: Positive: Abdominal Pain Genitourinary: No: Dysuria Musculoskeletal: Positive: Edema, No: Pain Skin: No Rash Neurologic: No: Weakness Psychiatric: No: Depression Endocrine: No: Polydipsia Hematologic/Lymphatic: No: Easy Bruising Physical Exam Narrative GENERAL: No acute distress, nontoxic SKIN: Warm and dry. HEAD: Atraumatic. Normocephalic. EYES: Pupils equal and round. No scleral icterus. No injection or drainage. ENT: No nasal bleeding or discharge. Mucous membranes pink and moist. NECK: Trachea midline. No JVD. CARDIOVASCULAR: Regular rate and rhythm. No murmur appreciated. RESPIRATORY: No accessory muscle use. Clear to auscultation. Breath sounds equal bilaterally. GASTROINTESTINAL: Abdomen soft, tenderness to lower abdomen, incisions are clean , dry, intact with no drainage or no signs of infection MUSCULOSKELETAL: No obvious deformities. No clubbing. No cyanosis. +1 edema bilaterally NEUROLOGICAL: Awake and alert. No obvious cranial nerve deficits. Motor grossly within normal limits. Normal speech. PSYCHIATRIC: Appropriate mood and affect; insight and judgment normal. Data Data Last Documented VS Vital Signs Date Time Temp Pulse Resp B/P Pulse Ox O2 Delivery O2 Flow Rate FiO2 07/05/16 05:04 80 18 125/64 97 07/05/16 02:02 Room Air 07/05/16 00:08 98.3 Orders Complete Blood Count With Diff (07/05/16 01:16) Comprehensive Metabolic Panel (07/05/16 01:16) Urinalysis - C+S If Indicated (07/05/16 01:16) Iv Access Insert/Monitor (07/05/16 01:16) Sodium Chloride 0.9% Flush (Ns Flush) (07/05/16 01:30) Sodium Chlor 0.9% 1000 Ml Inj (Ns 1000 M (07/05/16 01:16) Us Leg Venous Doppler Bilat (07/05/16 ) Ct Abd/Pel W/O Iv Contrast (07/05/16 01:56) Urine Culture (07/05/16 03:40) Ceftriaxone Inj (Rocephin Inj) (07/05/16 04:30) Complete Blood Count With Diff (07/05/16 05:06) Labs Laboratory Tests Test 07/05/16 07/05/16 07/05/16 01:26 03:40 05:10 White Blood Count 7.9 TH/MM3 7.4 TH/MM3 Red Blood Count 3.38 MIL/MM3 2.97 MIL/MM3 Hemoglobin 9.0 GM/DL 8.2 GM/DL Hematocrit 27.9 % 24.8 % Mean Corpuscular Volume 82.5 FL 83.4 FL Mean Corpuscular Hemoglobin 26.5 PG 27.6 PG Mean Corpuscular Hemoglobin 32.1 % 33.0 % Concent Red Cell Distribution Width 14.8 % 15.0 % Platelet Count 277 TH/MM3 247 TH/MM3 Mean Platelet Volume 8.2 FL 8.0 FL Neutrophils (%) (Auto) 60.7 % 58.8 % Lymphocytes (%) (Auto) 25.6 % 27.0 % Monocytes (%) (Auto) 9.3 % 9.4 % Eosinophils (%) (Auto) 3.7 % 4.0 % Basophils (%) (Auto) 0.7 % 0.8 % Neutrophils # (Auto) 4.8 TH/MM3 4.4 TH/MM3 Lymphocytes # (Auto) 2.0 TH/MM3 2.0 TH/MM3 Monocytes # (Auto) 0.7 TH/MM3 0.7 TH/MM3 Eosinophils # (Auto) 0.3 TH/MM3 0.3 TH/MM3 Basophils # (Auto) 0.1 TH/MM3 0.1 TH/MM3 CBC Comment AUTO DIFF AUTO DIFF Differential Comment AUTO DIFF CONFIRMED Platelet Estimate NORMAL Platelet Morphology Comment NORMAL Sodium Level 142 MEQ/L Potassium Level 3.6 MEQ/L Chloride Level 105 MEQ/L Carbon Dioxide Level 27.7 MEQ/L Anion Gap 9 MEQ/L Blood Urea Nitrogen 8 MG/DL Creatinine 0.61 MG/DL Estimat Glomerular Filtration 122 ML/MIN Rate Random Glucose 88 MG/DL Calcium Level 8.7 MG/DL Total Bilirubin 0.5 MG/DL Aspartate Amino Transf 13 U/L (AST/SGOT) Alanine Aminotransferase 12 U/L (ALT/SGPT) Alkaline Phosphatase 82 U/L Total Protein 6.4 GM/DL Albumin 2.3 GM/DL Urine Color YELLOW Urine Turbidity HAZY Urine pH 6.5 Urine Specific [place] 1.015 Urine Protein TRACE mg/dL Urine Glucose (UA) NEG mg/dL Urine Ketones NEG mg/dL Urine Occult Blood LARGE Urine Nitrite NEG Urine Bilirubin NEG Urine Urobilinogen 2.0 MG/DL Urine Leukocyte Esterase SMALL Urine RBC 5 /hpf Urine WBC 12 /hpf Urine Squamous Epithelial 4 /hpf Cells Urine Renal Epithelial Cells <1 /hpf Urine Bacteria RARE /hpf Urine Mucus FEW /lpf Microscopic Urinalysis Comment CULTURE INDICATED MDM Medical Decision Making Medical Screen Exam Complete: Yes Emergency Medical Condition: Yes Interpretation(s) Vital Signs Date Time Temp Pulse Resp B/P Pulse Ox O2 Delivery O2 Flow Rate FiO2 07/05/16 00:26 18 100 Room Air 07/05/16 00:08 98.3 112 18 138/64 98 Room Air Differential Diagnosis Postop infection, irregular vaginal bleeding, DVT Narrative Course Patient is a 21-year-old female who presents to emergency room for evaluation of passing blood clots tonight. Patient had a on Friday with Dr. Horner, reports that she was discharged to home on Friday. Patient was concerned as she passed 3 large blood clots today, also reports that she has noticed increased swelling to her legs. Pelvic ultrasound as well as ultrasound of legs ordered. US tech unable to see anything transabdominally and is not allowed to perform pelvic US 6 weeks after delivery even if patient had a . will obtain ct of abdomen CBC & BMP Diagram 07/05/16 01:26 Last Impressions Abdomen/Pelvis CT 07/05/16 0156 Signed Impressions: Service Date/Time: Tuesday, July 05, 2016 02:46 - CONCLUSION: 1. Postoperative changes on recent section with changes in the lower anterior abdominal wall as above which can be seen postoperatively. Enlarged uterus with 4 cm area of possible clotted blood in the lower uterine segment. Trace free fluid. No free air. Mild constipation. Lucien Gann MD Lower Extremity Ultrasound 07/05/16 0000 Signed Impressions: Service Date/Time: Tuesday, July 05, 2016 01:39 - CONCLUSION: Normal examination. Lucien Gann MD Patient reevaluated, patient feeling much better at this time. I reviewed all labs and all studies with patient detail. Discussed need for repeat outside 1 week if swelling persists. Patient will call her [facility] first thing in the morning for earliest follow-up appointment. She will return to the emergency room if symptoms progress or worsen or return. Patient was given a copy of her labs and studies at discharge. Signs and symptoms of when to return to the emergency room was reviewed with patient and her in detail. hgb on 06/30/16 was 8.1, hgb tonight 9.[address] Morejon - pt safe to be discharged to home with outpt follow up, ct findings are normal post op findings repeat hgb 8.2 - hemoglobin drop most likely dilutional in nature from receiving IV fluids as she received 1 L IV fluids as well as IV antibiotics while in the emergency room. Diagnosis Primary Impression: Vaginal bleeding Additional Impressions: Anemia Qualified Code: D64.9 - Anemia, unspecified type Leg swelling UTI (urinary tract infection) Qualified Code: N30.01 - Acute cystitis with hematuria Patient Instructions: General Instructions Additional Instructions: Please provide patient with a copy of her lab work and studies at discharge Please follow-up with all cultures from today Please call your [facility] first thing in the morning for earliest follow-up Please return to the emergency room if symptoms progress or worsen Please have your ultrasound of her legs repeated in 1 week if swelling persists Med/Other Pt SpecificInfo: Prescription(s) given Scripts Nitrofurantoin Monohydrate Macrocrystals (Macrobid)100 Mg [id number] Mg PO BID 10 Days Ref 0 Prov:Glory Lucas DO 07/05/16 Disposition: DISCHARGE HOME Condition: Stable Glory Lucas DO Jul 05, 2016 01:54
[2016-07-05 02:02] VITALS: BP 127/74; PULSE 68; RESP 16; O2SAT 96
[2016-07-05 02:04] LABS: ALT (GPT) 12 U/L (10-53); ANION GAP 9 MEQ/L (5-15); AST (GOT) 13 U/L (15-37); BICARBONATE 27.7 MEQ/L (21.0-32.0); BLOOD UREA NITROGEN 8 MG/DL (7-18); CHLORIDE 105 MEQ/L (98-107); GLOMERULAR FILTRATION RATE 122 ML/MIN (>89); POTASSIUM 3.6 MEQ/L (3.5-5.1); SODIUM (NA) 142 MEQ/L (136-145)
[2016-07-05 02:06] LABS: ALKALINE PHOSPHATASE 82 U/L (45-117); TOTAL BILIRUBIN ADULT 0.5 MG/DL (0.2-1.0)
[2016-07-05 02:10] LABS: PLATELET ESTIMATE SMEAR NORMAL (NORMAL); PLATELET MORPHOLOGY NORMAL (NORMAL); SCAN/DIFF AUTO DIFF CONFIRMED
--- NOTE | 2016-07-05 02:20 | RADRPT ---
EXAM DATE/TIME: 07/05/2016 01:39 [facility] COMPARISON: No previous studies available for comparison. INDICATIONS : Bilateral leg swelling. MEDICAL HISTORY : 5 days post pardum. SURGICAL HISTORY : section. ENCOUNTER: Initial ACUITY: 1 day PAIN SCORE: 0/10 LOCATION: Bilateral legs. TECHNIQUE: Venous ultrasound of the left and right leg was performed from the inguinal ligament to the proximal calf. Real-time, color Doppler and spectral tracing, compression and augmentation techniques were us ed. FINDINGS: RIGHT LEG: There is normal compressibility of the deep venous system from the inguinal region to the proximal ca lf. No echogenic clot is seen in the lumen of the common femoral, femoral, popliteal, and posterior tibial veins. There is a normal response of the venous system to proximal and distal augmentation an d respiration. LEFT LEG: There is normal compressibility of the deep venous system from the inguinal region to the proximal ca lf. No echogenic clot is seen in the lumen of the common femoral, femoral, popliteal, and posterior tibial veins. There is a normal response of the venous system to proximal and distal augmentation an d respiration. CONCLUSION: Normal examination. Lucien Gann MD on July 05, 2016 at 2:18 Board Certified Radiologist. This report was verified electronically.
--- NOTE | 2016-07-05 03:13 | RADRPT ---
EXAM DATE/TIME: 07/05/2016 02:46 [facility] COMPARISON: No previous studies available for comparison. INDICATIONS : Lower abdominal pain status post section. ORAL CONTRAST: No oral contrast ingested. RADIATION DOSE: 17.02 CTDIvol (mGy) MEDICAL HISTORY : None SURGICAL HISTORY : section. ENCOUNTER: Initial ACUITY: 1 day PAIN SCALE: 10/10 LOCATION: lower quadrant abdomen TECHNIQUE: Volumetric scanning of the abdomen and pelvis was performed. Using automated exposure control and ad justment of the mA and/or kV according to patient size, radiation dose was kept as low as reasonably achievable to obtain optimal diagnostic quality images. FINDINGS: Per history, patient is postoperative section. There is some subcutaneous fat stranding, sma ll locules of air and a small amount of fluid in the lower anterior abdominal wall characteristic of recent postoperative changes of section. There uterus is enlarged from recent . The re is a 4 cm area of increased attenuation in the lower uterine segment which may represent a small a mount of hemorrhage within the endometrial cavity. Lung bases are clear. No acute findings in the liver, spleen, adrenals, kidneys or pancreas. No calci fied gallstones or biliary ductal dilatation. There is mild constipation. No acute bony abnormalities . CONCLUSION: 1. Postoperative changes on recent section with changes in the lower anterior abdominal wall as above which can be seen postoperatively. Enlarged uterus with 4 cm area of possible cl otted blood in the lower uterine segment. Trace free fluid. No free air. Mild constipation. Lucien Gann MD on July 05, 2016 at 3:05 Board Certified Radiologist. This report was verified electronically.
[2016-07-05 04:02] LABS: BACTERIA, URINE RARE /hpf; BLOOD, URINE LARGE (NEG); COMMENT (UR) CULTURE INDICATED; CULTURE IF INDICATED CULTURE INDICATED; GLUCOSE,URINE NEG (NEG); KETONE, URINE NEG (NEG); MUCUS URINE FEW /lpf (OCC); NITRITE,URINE NEG (NEG); PH, URINE 6.5 (5.0-8.5); RENAL EPITHELIAL CELLS <1 /hpf; SQUAMOUS EPITHELIAL CELL URINE 4 /hpf (0-5); URINE COLOR YELLOW (YELLW/STRAW)
[2016-07-05] MEDS ORDERED: cefTRIAXone INJ 1,000 MG in SODIUM CHLORIDE 0.9% INJ 100 ML IV ONE (04:30)
[2016-07-05] MEDS ORDERED: MACR100C2 PO (05:01)
[2016-07-05 05:04] VITALS: BP 125/64
[2016-07-05 05:26] LABS: AUTOMATED NEUTROPHIL # 4.4 TH/MM3 (1.8-7.7); BASOPHIL # 0.1 TH/MM3 (0-0.2); BASOPHIL % 0.8 % (0.0-2.0); EOSINOPHIL # 0.3 TH/MM3 (0-0.4); HEMATOCRIT 24.8 % (35.0-46.0); MEAN CELL VOLUME 83.4 FL (80.0-100.0); MEAN CORPUSCULAR HEMOGLOBIN 27.6 PG (27.0-34.0); MONO % 9.4 % (0.0-8.0); NEUT % 58.8 % (16.0-70.0); PLATELET COUNT 247 TH/MM3 (150-450); RED BLOOD COUNT 2.97 MIL/MM3 (4.00-5.30); WHITE BLOOD COUNT 7.4 TH/MM3 (4.0-11.0)
[2016-07-05 05:30] LABS: HEMO FLAGS AUTO DIFF
[2016-07-05 06:41] LABS: BANDS 4 % (0-6); EOSINOPHILS 4 % (0-4); METAMYELOCYTES 1 % (0-1); MYELOCYTES 2 % (0-0); POLYS (SEG NEUTROPHILS) 60 % (16-70); WBC DIFF SAMPLE 100
[2016-07-05 06:42] LABS: PLATELET ESTIMATE SMEAR NORMAL (NORMAL); PLATELET MORPHOLOGY NORMAL (NORMAL); SCAN/DIFF FINAL DIFF MANUAL
== END 2016-07-05 05:48 | disposition home or self-care (01) ==
LOC: NEPC 00:07
DX: N93.9 Abnormal uterine and vaginal bleeding, unspecified (principal); D64.9 Anemia, unspecified; M79.89 Other specified soft tissue disorders; N39.0 Urinary tract infection, site not specified; J45.909 Unspecified asthma, uncomplicated
CPT/HCPCS: 74176; 80053; 81001; 85007; 85025; 85027; 87086; 93970; 96361; 96365; 99284; J0696; J7030

== ENCOUNTER 2016-08-03 06:41 | Emergency (ER) | payer BC ==
[~2016-08-03] VITALS: Ht 177.8 cm; Wt 116.0 kg
[~2016-08-03 06:41] MED LIST changes: +MACR100C2 PO
[2016-08-03 06:43] VITALS: BP 149/78; PULSE 57; RESP 15; TEMP 98; O2SAT 100
[2016-08-03] MEDS ORDERED: SODIUM CHLORIDE 0.9% FLUSH 10 ML FLUSH IVF PRN (07:30)
--- NOTE | 2016-08-03 07:32 | PD ---
HPI Chief Complaint: Chest Pain Time Seen by Provider: 07:27 Travel History International Travel<30 days: No Contact w/Intl Traveler<30days: No Traveled to known affect area: No History of Present Illness HPI This is a 21-year-old female who was previously healthy who status post normal spontaneous vaginal delivery one month prior, who presents today with complaints of chest pain since yesterday. Patient reports it's substernal and radiates to the right and left in the lower chest wall. She states it's worse with movement. She also reports it's worth with taking a deep breath. Patient reports it as sharp and pressure-like. She denies any nausea. She does state that she has shortness of breath but when asked about shortness of breath it's really pain when she breathes. Patient also states that she took a urine test and it was slightly positive. She is sexually active. There is no calf swelling or tenderness. She does not smoke. She has had no long car rides. She is currently not taking any control pills. PFSH Past Medical History Asthma: Yes Bipolar Disorder: Yes Anxiety: Yes Depression: Yes Diminished Hearing: No Psychiatric: Yes (PTSD, PANIC DISORDER) Ulcer: Yes ?: Unknown LMP: DELIVERED 06/29/16 : 2 Para: 1 Miscarriage: 1 Past Surgical History Section: Yes Oral Surgery: Yes (wisdom teeth removal ) Social History Alcohol Use: No Tobacco Use: No Substance Use: No Allergies-Medications (Allergen,Severity, Reaction): Coded Allergies: No Known Allergies (Unverified , 08/03/16) Reported Meds & Prescriptions Reported Meds & Active Scripts Active Macrobid (Nitrofurantoin Monoh/Nitrofur Macro) 100 Mg Cap 100 Mg PO BID 10 Days Oxycodone-Acetaminophen 5-325 mg Tab 2 Tab PO Q4H PRN Review of Systems Except as stated in HPI: all other systems reviewed are Neg General / Constitutional: No: Fever, Chills HENT: No: Headaches, Lightheadedness Cardiovascular: Positive: Chest Pain or Discomfort, No: Palpitations Respiratory: Positive: Pleuritic Pain, No: Cough, Shortness of Breath Gastrointestinal: No: Nausea, Vomiting, Abdominal Pain Genitourinary: Positive: Other (reports "slight" positive urine ), No : Frequency, Dysuria Musculoskeletal: Positive: Pain (in chest wall and), No: Weakness ( back.) Neurologic: No: Weakness, Dizziness, Focal Abnormalities, Headache Physical Exam Narrative GENERAL: Well-nourished, well-developed patient, in no acute respiratory distress. SKIN: Focused skin assessment warm/dry. HEAD: Normocephalic/atraumatic. EYES: No scleral icterus. No injection or drainage. NECK: Supple, trachea midline. CARDIOVASCULAR: Regular rate and rhythm without murmurs, gallops, or rubs. RESPIRATORY: Breath sounds equal bilaterally. No accessory muscle use. GASTROINTESTINAL: Abdomen soft, non-tender, nondistended. MUSCULOSKELETAL: No cyanosis, or edema. No calf tenderness, Homans sign. NEUROLOGICAL: Awake and alert. Cranial nerves II through XII intact. Motor grossly within normal limits. Five out of 5 muscle strength in all muscle groups. Normal speech. Data Data Last Documented VS Vital Signs Date Time Temp Pulse Resp B/P Pulse Ox O2 Delivery O2 Flow Rate FiO2 08/03/16 09:12 61 18 121/62 96 Room Air 124/69 08/03/16 06:43 98.0 Orders Electrocardiogram (08/03/16 ) Basic Metabolic Panel (Bmp) (08/03/16 07:27) Ckmb (Isoenzyme) Profile (08/03/16 07:27) Complete Blood Count With Diff (08/03/16 07:27) D-Dimer (08/03/16 07:27) Magnesium (Mg) (08/03/16 07:27) Prothrombin Time / Inr (Pt) (08/03/16 07:27) Act Partial Throm Time (Ptt) (08/03/16 07:27) Troponin I (08/03/16 07:27) Ecg Monitoring (08/03/16 07:27) Bilateral Bp Monitoring (08/03/16 07:27) Iv Access Insert/Monitor (08/03/16 07:27) Oximetry (08/03/16 07:27) Oxygen Administration (08/03/16 07:27) Sodium Chloride 0.9% Flush (Ns Flush) (08/03/16 07:30) Ed Urine Pregnancytest Poc (08/03/16 07:27) Chest, Single Ap (08/03/16 07:55) Ketorolac Inj (Toradol Inj) (08/03/16 08:00) Ct Pulmonary Angiogram (08/03/16 08:31) Iohexol 350 Inj (Omnipaque 350 Inj) (08/03/16 09:54) Labs Laboratory Tests Test 08/03/16 07:35 White Blood Count 7.8 TH/MM3 Red Blood Count 4.46 MIL/MM3 Hemoglobin 11.5 GM/DL Hematocrit 35.5 % Mean Corpuscular Volume 79.5 FL Mean Corpuscular Hemoglobin 25.7 PG Mean Corpuscular Hemoglobin 32.4 % Concent Red Cell Distribution Width 15.9 % Platelet Count 307 TH/MM3 Mean Platelet Volume 8.5 FL Neutrophils (%) (Auto) 66.6 % Lymphocytes (%) (Auto) 23.3 % Monocytes (%) (Auto) 6.4 % Eosinophils (%) (Auto) 3.1 % Basophils (%) (Auto) 0.6 % Neutrophils # (Auto) 5.2 TH/MM3 Lymphocytes # (Auto) 1.8 TH/MM3 Monocytes # (Auto) 0.5 TH/MM3 Eosinophils # (Auto) 0.2 TH/MM3 Basophils # (Auto) 0.0 TH/MM3 CBC Comment DIFF FINAL Differential Comment Prothrombin Time 10.5 SEC Prothromb Time International 1.0 RATIO Ratio Activated Partial 26.6 SEC Thromboplast Time D-Dimer Quantitative (PE/DVT) 1.12 MG/L FEU Sodium Level 140 MEQ/L Potassium Level 3.8 MEQ/L Chloride Level 104 MEQ/L Carbon Dioxide Level 27.6 MEQ/L Anion Gap 8 MEQ/L Blood Urea Nitrogen 9 MG/DL Creatinine 0.86 MG/DL Estimat Glomerular Filtration 82 ML/MIN Rate Random Glucose 102 MG/DL Calcium Level 8.9 MG/DL Magnesium Level 2.2 MG/DL Total Creatine Kinase 88 U/L Troponin I LESS THAN 0.02 NG/ML MDM Medical Decision Making Medical Screen Exam Complete: Yes Emergency Medical Condition: Yes Differential Diagnosis ACS versus pulmonary embolism versus Musca skeletal pain Narrative Course A 1-year-old female who is one month , presents today with complaints of chest pain with pleuritic nature. The patient's cardiac enzymes and EKG show no evidence of acute process. The patient's d-dimer was elevated. CT angiogram shows no evidence of pulmonary embolus. I I did medicate the patient with Toradol which she states helped with her discomfort. We will send her home with 41/2 days of Toradol, and milligrams. She also be given a prescription for Skelaxin for muscle relaxer. She is instructed to avoid heavy lifting. Diagnosis Primary Impression: Atypical chest pain Additional Impression: suspected musculoskeletal strain of the chest wall Additional Instructions: Return of worse pain, fevers, chills, or any other reason that concerned her. Med/Other Pt SpecificInfo: Prescription(s) given Scripts Metaxalone (Skelaxin)800 Mg [id number] Mg PO TID #15 TAB Ref 0 Prov:Daniel Valencia MD 08/03/16 Ketorolac 10 Mg Tab10 Mg PO BID #9 TAB Ref 0 Prov:Daniel Valencia MD 08/03/16 Disposition: 01 DISCHARGE HOME Condition: Stable Daniel Valencia MD Aug 03, 2016 07:32
[2016-08-03 07:45] VITALS: O2SAT 97
[2016-08-03] MEDS ORDERED: KETOROLAC TROMETHAMINE 30 MG/ML (IVP) VIAL IV PUSH ONE (08:00)
[2016-08-03 08:08] LABS: AUTOMATED NEUTROPHIL # 5.2 TH/MM3 (1.8-7.7); BASOPHIL % 0.6 % (0.0-2.0); EOSINOPHIL # 0.2 TH/MM3 (0-0.4); EOSINOPHIL % 3.1 % (0.0-4.0); HEMATOCRIT 35.5 % (35.0-46.0); HEMO FLAGS DIFF FINAL; LYMPH % 23.3 % (9.0-44.0); LYMPHOCYTE # 1.8 TH/MM3 (1.0-4.8); MEAN CELL VOLUME 79.5 FL (80.0-100.0); MEAN CORPUSCULAR HEMOGLOBIN 25.7 PG (27.0-34.0); MEAN CORPUSCULAR HGB CONC 32.4 % (32.0-36.0); MONO % 6.4 % (0.0-8.0); NEUT % 66.6 % (16.0-70.0); PLATELET COUNT 307 TH/MM3 (150-450); RED BLOOD COUNT 4.46 MIL/MM3 (4.00-5.30); RED CELL DISTRIBUTION WIDTH 15.9 % (11.6-17.2); WHITE BLOOD COUNT 7.8 TH/MM3 (4.0-11.0)
[2016-08-03 08:20] LABS: APTT (PATIENT) 26.6 SEC (24.3-30.1); PROTHROMBIN TIME - PATIENT 10.5 SEC (9.8-11.6)
[2016-08-03 08:26] LABS: ANION GAP 8 MEQ/L (5-15); BICARBONATE 27.6 MEQ/L (21.0-32.0); BLOOD UREA NITROGEN 9 MG/DL (7-18); CHLORIDE 104 MEQ/L (98-107); GLOMERULAR FILTRATION RATE 82 ML/MIN (>89); MAGNESIUM 2.2 MG/DL (1.5-2.5); POTASSIUM 3.8 MEQ/L (3.5-5.1); SODIUM (NA) 140 MEQ/L (136-145)
[2016-08-03 08:30] VITALS: BP 124/69; PULSE 61; RESP 18; O2SAT 96
--- NOTE | 2016-08-03 08:43 | RADRPT ---
EXAM DATE/TIME: 08/03/2016 08:16 [facility] COMPARISON: CHEST, AP & LAT, April 02, 2016, 4:17. INDICATIONS : Chest pain and shortness of breath. MEDICAL HISTORY : Asthma. SURGICAL HISTORY : None. ENCOUNTER: Initial ACUITY: 1 day PAIN SCORE: 10/10 LOCATION: chest FINDINGS: The lungs are clear without infiltrate, nodule, or mass. There is no appreciable pleural effusion fo r technique. Heart and mediastinum are unremarkable. CONCLUSION: No acute cardiopulmonary disease. Shin Sethi MD on August 03, 2016 at 8:40 Board Certified Radiologist. This report was verified electronically.
[2016-08-03 08:59] LABS: CREATINE KINASE 88 U/L (26-192)
[2016-08-03 09:12] VITALS: BP_SYST 121; BP_SYST 124; BP_DIAS 62; BP_DIAS 69; PULSE 61; RESP 18; O2SAT 96
[2016-08-03] MEDS ORDERED: IOHEXOL 350 MG/ML 10 ML VIAL (for RAD DIAG) IV ONE (09:54)
--- NOTE | 2016-08-03 10:19 | RADRPT ---
EXAM DATE/TIME: 08/03/2016 09:53 [place] COMPARISON: CHEST SINGLE AP, August 03, 2016, 8:16. INDICATIONS : Substernal chest pain for two days. IV CONTRAST: 84 cc Omnipaque 350 (iohexol) IV RADIATION DOSE: 23.20 CTDIvol (mGy) MEDICAL HISTORY : None SURGICAL HISTORY : section. ENCOUNTER: Initial ACUITY: 2 days PAIN SCALE: 6/10 LOCATION: substernal chest TECHNIQUE: Volumetric scanning of the chest was performed using a pulmonary embolism protocol MIP images were re constructed. Using automated exposure control and adjustment of the mA and/or kV according to patien t size, radiation dose was kept as low as reasonably achievable to obtain optimal diagnostic quality images. FINDINGS: The lungs are clear without infiltrate, nodule, or mass. There is no pleural effusion. No appreciab le pathological adenopathy is seen within the mediastinum. There is no evidence for PE for technique. There is a tubular structure artifactual in appearance overlapping the patient's stomach and there i s no NG tube on the patient's chest x-ray. The etiology for this is not certain. CONCLUSION: Unremarkable study. Shin Sethi MD on August 03, 2016 at 10:12 Board Certified Radiologist. This report was verified electronically.
[2016-08-03] MEDS ORDERED: KETO10 PO (10:48)
[2016-08-03] MEDS ORDERED: META800T81 PO (10:48)
[2016-08-03 11:18] VITALS: RESP 16
[2016-08-03 11:30] VITALS: BP 124/64
--- NOTE | 2016-08-03 14:27 | EKG ---
Date Performed: 08/03/2016 Time Performed: 07:25:45 PTAGE: 21 years EKG: SINUS BRADYCARDIA WITH SINUS ARRHYTHMIA BORDERLINE ECG NO PREVIOUS TRACING DOCTOR: Mundo Starks Interpretating Date/Time 08/03/2016 14:27:15
== END 2016-08-03 11:32 | disposition home or self-care (01) ==
LOC: NEPE 06:41
DX: O90.89 Other complications of the puerperium, not elsewhere classified (principal); R07.89 Other chest pain; R79.1 Abnormal coagulation profile; R94.31 Abnormal electrocardiogram [ECG] [EKG]; Z87.09 Personal history of other diseases of the respiratory system; Z86.59 Personal history of other mental and behavioral disorders; Z87.19 Personal history of other diseases of the digestive system
CPT/HCPCS: 71010; 71275; 80048; 82550; 83735; 84484; 84703; 85025; 85379; 85610; 85730; 93005; 96374; 99284; J1885; Q9967

== ENCOUNTER 2016-12-10 13:52 | Emergency (ER) | payer BC ==
[~2016-12-10] VITALS: Ht 172.7 cm; Wt 120.0 kg
[~2016-12-10 13:52] MED LIST changes: +KETO10 PO; +META800T81 PO
[2016-12-10 13:55] VITALS: BP 134/70; PULSE 62; RESP 15; TEMP 98.7; O2SAT 100
--- NOTE | 2016-12-10 19:01 | PD ---
HPI Chief Complaint: Fall Time Seen by Provider: 18:30 Travel History International Travel<30 days: No Contact w/Intl Traveler<30days: No Traveled to known affect area: No History of Present Illness HPI Patient is a 21 female presents emergency department for evaluation of abdominal pain at all. Patient states she fell down a few stairs impacting her abdomen. Denies any vaginal bleeding loss of fluid. She's been feeling well enough to eat a large meal prior to me seeing her. She states she is still feeling baby move. Also complaining of some thoracic back pain. Denies loss consciousness denies any head injury and neck injury. PFSH Past Medical History Asthma: Yes Bipolar Disorder: Yes Anxiety: Yes Depression: Yes Diminished Hearing: No Psychiatric: Yes (PTSD, PANIC DISORDER) Respiratory: Yes (ASTHMA) Immunizations Current: Yes Ulcer: Yes Tetanus Vaccination: Unknown Influenza Vaccination: No ?: : 2 Para: 1 Miscarriage: 1 Past Surgical History Section: Yes Oral Surgery: Yes (wisdom teeth removal ) Social History Alcohol Use: No Tobacco Use: No Substance Use: No Allergies-Medications (Allergen,Severity, Reaction): Coded Allergies: No Known Allergies (Unverified , 08/03/16) Reported Meds & Prescriptions Reported Meds & Active Scripts Active Macrobid (Nitrofurantoin Monoh/Nitrofur Macro) 100 Mg Cap 100 Mg PO BID 10 Days Review of Systems Except as stated in HPI: all other systems reviewed are Neg Physical Exam Narrative GENERAL: Well-developed well-nourished no obvious distress SKIN: Focused skin assessment warm/dry. HEAD: Atraumatic. Normocephalic. EYES: Pupils equal and round. No scleral icterus. No injection or drainage. ENT: No nasal bleeding or discharge. Mucous membranes pink and moist. NECK: Trachea midline. No JVD. CARDIOVASCULAR: Regular rate and rhythm. No murmur appreciated. RESPIRATORY: No accessory muscle use. Clear to auscultation. Breath sounds equal bilaterally. GASTROINTESTINAL: Abdomen soft, non-tender, nondistended. Hepatic and splenic margins not palpable. Gravid abdomen, nontender, no rebound no percussive tenderness. MUSCULOSKELETAL: No obvious deformities. No clubbing. No cyanosis. No edema. Minimal T-spine tenderness. Just left of midline. NEUROLOGICAL: Awake and alert. No obvious cranial nerve deficits. Motor grossly within normal limits. Normal speech. PSYCHIATRIC: Appropriate mood and affect; insight and judgment normal. Data Data Last Documented VS Vital Signs Date Time Temp Pulse Resp B/P (MAP) Pulse Ox O2 Delivery O2 Flow Rate FiO2 12/10/16 20:07 12/10/16 18:56 98 Room Air 12/10/16 13:55 98.7 62 15 Orders Orders Urinalysis - C+S If Indicated (12/10/16 18:30) Ed Urine Pregnancytest Poc (12/10/16 18:30) Ed Urine Pregnancytest Poc (12/10/16 18:42) Ed Poc Ultrasound (12/10/16 18:49) Urine Culture (12/10/16 18:40) Labs Laboratory Tests Test 12/10/16 18:40 Urine Color YELLOW Urine Turbidity CLOUDY Urine pH 6.0 Urine Specific [place] 1.028 Urine Protein 30 mg/dL Urine Glucose (UA) NEG mg/dL Urine Ketones 150 mg/dL Urine Occult Blood NEG Urine Nitrite POS Urine Bilirubin NEG Urine Urobilinogen LESS THAN 2.0 MG/DL Urine Leukocyte Esterase MOD Urine RBC 7 /hpf Urine WBC 17 /hpf Urine Squamous Epithelial Cells 12 /hpf Urine Amorphous Sediment RARE Urine Bacteria MANY /hpf Urine Mucus MANY /lpf Microscopic Urinalysis Comment CULTURE INDICATED MDM Medical Decision Making Medical Screen Exam Complete: Yes Emergency Medical Condition: Yes Differential Diagnosis Neck injury, abdominal injury, , abdominal pain and . Narrative Course Patient roomed emergency department, bedside ultrasound was reassuring. Patient on pelvic exam and declined. She has felt well enough to eat after her injury. She was offered imaging of her back but at this time I think the risks to the fetus outweigh pretest probability. Think she is very low likelihood for bony back injury. Discussed follow-up with a primary care physician or OB/ SENIOR [employer]. Discussed return to ED criteria. There is no indication for nonstress testing, her neck and head were cleared by Reform CT head rolls and Nexus criteria. Procedures Procedure Narrative Bedside ultrasound transabdominal ultrasound: Views obtained of the uterus shows a single intrauterine approximately 15w0d. FHT to 163. Diagnosis Primary Impression: Abdominal pain affecting Additional Impressions: Fall Asymptomatic bacteriuria Med/Other Pt SpecificInfo: Prescription(s) given Scripts Nitrofurantoin Monohydrate Macrocrystals (Macrobid) 100 Mg Cap 100 MG PO BID for Infection for 10 Days, CAP 0 Refills Prov: Fam Davis MD 12/10/16 Disposition: 01 DISCHARGE HOME Condition: Stable Fam Davis MD Dec 10, 2016 19:01
[2016-12-10 19:24] LABS: BACTERIA, URINE MANY /hpf; BLOOD, URINE NEG (NEG); COMMENT (UR) CULTURE INDICATED; CULTURE IF INDICATED CULTURE INDICATED; GLUCOSE,URINE NEG (NEG); KETONE, URINE 150 mg/dL (NEG); MUCUS URINE MANY /lpf (OCC); NITRITE,URINE POS (NEG); SQUAMOUS EPITHELIAL CELL URINE 12 /hpf (0-5); URINE COLOR YELLOW (YELLW/STRAW)
[2016-12-10] MEDS ORDERED: MACR100C2 PO (19:32)
== END 2016-12-10 21:58 | disposition home or self-care (01) ==
LOC: NEPD 13:52
DX: Z04.3 Encounter for examination and observation following other accident (principal); R10.84 Generalized abdominal pain; O23.42 Unspecified infection of urinary tract in pregnancy, second trimester; B96.20 Unspecified Escherichia coli [E. coli] as the cause of diseases classified elsewhere; Z3A.15 15 weeks gestation of pregnancy; W10.9XXA Fall (on) (from) unspecified stairs and steps, initial encounter
CPT/HCPCS: 81001; 84703; 87077; 87086; 87186; 99284

== ENCOUNTER 2017-01-02 17:52 | Emergency (ER) | payer BC ==
[~2017-01-02 17:52] MED LIST changes: -KETO10 PO; -META800T81 PO; -OXYC1TAB63 PO
--- NOTE | 2017-01-02 19:39 | PD ---
HPI Chief Complaint the pt says she passed a quarter size blood clot in the shower today Date Seen: Jan 02, 2017 Time Seen: 19:30 Travel History International Travel<30 Days: No Contact w/Intl Traveler<30Days: No Known Affected Area: No History of Present Illness HPI Patient 21-year-old white female at [address] Horner for care who presents complaining of bleeding today. Patient states she passed a quarter size blood clot in the shower today, she had no bleeding before or after that. She has no pain now. No leakage of clear fluid. heart tones present 140 Weeks Gestation: 17 Para: 1 : 3 History Obstetric History Obstetric History One vaginal delivery 1 early loss Social History Alcohol Use: No Tobacco Use: No Substance Abuse: No Allergies-Medications (Allergen,Severity, Reaction): Coded Allergies: No Known Allergies (Unverified , 08/03/16) Home Meds Active Scripts Nitrofurantoin Monohydrate Macrocrystals (Macrobid) 100 Mg Cap, 100 MG PO BID for Infection for 10 Days, CAP 0 Refills Prov:Fam Davis MD 12/10/16 Review of Systems General / Constitutional: No: Fever, Weight Gain, Chills, Other Eyes: No: Diploplia, Blurred Vision, Visual changes, Pain, Photophobia HENT: No: Headaches, Vertigo, Lightheadedness Cardiovascular: No: Irregular Rhythm, Chest Pain or Discomfort, Palpitations, Tachycardia, Syncope, Varicosities, Edema, Cyanosis Respiratory: No: Cough, Short of Breath, Other Gastrointestinal: No: Nausea, Vomiting, Diarrhea Genitourinary: No: Decreased Urinary Output, Oliguria Musculoskeletal: No: Limited ROM, Weakness, Cramping, Edema, Pain Skin: No Rash, No Itching, No Dryness, No Lumps, No Change in Pigmentation, No Change in Nails, No Alopecia, No Lesions Neurologic: No: Weakness, Dizziness, Syncope, Focal Abnormalities, Coordination Problem, Headache, Slurred Speech, Seizures Psychiatric: No: Depression, Suicidal Ideations, Homicidal Ideation Endocrine: No: Heat Intolerance, Cold Intolerance, Polydipsia, Polyuria, Other Physical Exam Narrative GENERAL: Well-nourished, obese patient. SKIN: Warm and dry. HEAD: Normocephalic and atraumatic. EYES: No scleral icterus. No injection or drainage. ENT: No nasal drainage noted. Mucous membranes pink. Airway patent. NECK: Supple, trachea midline. No JVD. CARDIOVASCULAR: Regular rate and rhythm without murmurs, gallops, or rubs. RESPIRATORY: Breath sounds equal bilaterally. No accessory muscle use. BREASTS: Bilateral exam showed no masses , no retractions, no nipple discharge. ABDOMEN/GI: Abdomen soft, non-tender, bowel sounds present, no rebound, no guarding Gravid to [17-] weeks size Fundal Height: [17-] GENITOURINARY: External Genitalia: intact and normal in appearance Speculum exam done tonight--no blood seen in the vagina cervix is normal appearance no infection no lesion no discharge or infection Cervix: [Closed-] Dilatation: [Closed-] Effacement: [-] Thick Station: [-3] Presentation: [-] Membranes: [intact or ruptured] FHT's: 140s EXTREMITIES: No cyanosis or edema. BACK: Nontender without obvious deformity. No CVA tenderness. NEUROLOGICAL: Awake and alert. Motor and sensory grossly within normal limits. Five out of 5 muscle strength in all muscle groups. Normal speech. MDM Interpretation(s) Patient is 21-year-old white female at 17 weeks gestation who presents combining of vaginal bleeding today. Patient's past a moderate-sized blood clot when she was in the shower. She has no other bleeding before or after that. She has no pain no leakage of clear fluid. heart tones 140s. Presentation was moving some furniture today by herself and straining and pulling and may have aggravated things get her bleeding Plan Plan the patient to be at bedrest over the next day or 2 try not to be lifting her baby in all the items and thinks that she is to carry around for that groceries etc. she is to return for significant vaginal bleeding. Unfortunately anything touching the cervix could cause her to spot including exam night as well as intercourse. Diagnosis Diagnosis: Primary Impression: 17 weeks gestation of Additional Impression: Spotting affecting in second trimester Disposition: 01 DISCHARGE HOME Condition: Stable Roger Earl II, MD Jan 02, 2017 19:39
== END 2017-01-02 19:38 | disposition home or self-care (01) ==
LOC: HOBED 17:52
DX: O26.852 Spotting complicating pregnancy, second trimester (principal); Z3A.17 17 weeks gestation of pregnancy; Z79.899 Other long term (current) drug therapy
CPT/HCPCS: 99283

== ENCOUNTER 2017-02-07 18:51 | Emergency (ER) | payer BC ==
--- NOTE | 2017-02-07 19:45 | PD ---
HPI Chief Complaint 21-year-old 3 para 1 with an EDC of June 09 and an estimated gestational age of 23 weeks who comes today after minor abdominal trauma where she fell against her kitchen counter. She denies bleeding, leakage of fluid or cramping. Date Seen: Feb 07, 2017 Time Seen: 19:40 Travel History International Travel<30 Days: No Contact w/Intl Traveler<30Days: No Known Affected Area: No History Past Medical History Narrative Medical Mild asthma for which she uses albuterol Obstetric History Obstetric History Prior for failure to progress Current is cared for by Dr. Horner. It has been uncomplicated to this point. Morbid obesity Past Surgical History Narrative Surgical Family History Family History: Negative Social History Alcohol Use: No Tobacco Use: No Substance Abuse: No Allergies-Medications (Allergen,Severity, Reaction): Coded Allergies: No Known Allergies (Unverified , 08/03/16) Home Meds Active Scripts Nitrofurantoin Monohydrate Macrocrystals (Macrobid) 100 Mg Cap, 100 MG PO BID for Infection for 10 Days, CAP 0 Refills Prov:Fam Davis MD 12/10/16 Review of Systems Except as stated in HPI: all other systems reviewed are Neg Physical Exam Narrative GENERAL: Morbidly obese, well-developed patient. SKIN: Warm and dry. HEAD: Normocephalic and atraumatic. EYES: No scleral icterus. No injection or drainage. ENT: No nasal drainage noted. Mucous membranes pink. Airway patent. NECK: Supple, trachea midline. No JVD. CARDIOVASCULAR: Regular rate and rhythm without murmurs, gallops, or rubs. RESPIRATORY: Breath sounds equal bilaterally. No accessory muscle use. ABDOMEN/GI: Abdomen soft, non-tender, bowel sounds present, no rebound, no guarding Gravid to [-] weeks size Fundal Height: [U +2-] GENITOURINARY: External Genitalia: intact and normal in appearance BUS glands: [-] Cervix: [-] Dilatation: [-] Effacement: [-] Station: [-] Presentation: [-] Membranes: [intact or ruptured] Uterine Contractions: [-] FHT's: Category: [-] Baseline: [-140] Reactive: [-] Variability: [Moderate-] Decels: [-] EXTREMITIES: No cyanosis or edema. BACK: Nontender without obvious deformity. No CVA tenderness. NEUROLOGICAL: Awake and alert. Motor and sensory grossly within normal limits. Five out of 5 muscle strength in all muscle groups. Normal speech. Data Data Vital Signs Reviewed: Yes MDM Medical Record Reviewed: Yes Narrative Course / MDM Assessment: 23 week intrauterine with very mild abdominal trauma, Rh+ Plan: Reassurance was given. She'll follow up Friday for follow-up care. Diagnosis Diagnosis: Primary Impression: 22 weeks gestation of Additional Impression: abdominal trauma Disposition: DISCHARGE HOME Condition: Good Tucker Middleton MD Feb 07, 2017 19:45
== END 2017-02-07 22:03 | disposition home or self-care (01) ==
LOC: HOBED 18:51
DX: O9A.212 Injury, poisoning and certain other consequences of external causes complicating pregnancy, second trimester (principal); S39.91XA Unspecified injury of abdomen, initial encounter; W19.XXXA Unspecified fall, initial encounter; Y92.000 Kitchen of unspecified non-institutional (private) residence as the place of occurrence of the external cause; Z3A.23 23 weeks gestation of pregnancy
CPT/HCPCS: 99283

== ENCOUNTER 2017-02-24 18:40 | Emergency (ER) | payer BC ==
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
== END 2017-02-24 21:36 | disposition home or self-care (01) ==
LOC: HOBED 18:40
DX: O26.892 Other specified pregnancy related conditions, second trimester (principal); Z3A.25 25 weeks gestation of pregnancy
CPT/HCPCS: 59025; 84112

== ENCOUNTER 2017-03-16 00:28 | Emergency (ER) | payer BC ==
[~2017-03-16] VITALS: Ht 177.8 cm; Wt 125.0 kg
[2017-03-16 00:30] VITALS: BP 138/73; PULSE 68; RESP 16; TEMP 98.6; O2SAT 98
[2017-03-16] MEDS ORDERED: PERC5TAB12 PO (01:05)
--- NOTE | 2017-03-16 01:05 | PD ---
HPI Chief Complaint: Oral / Dental Pain or Problem Time Seen by Provider: 00:52 Travel History International Travel<30 days: No Contact w/Intl Traveler<30days: No Traveled to known affect area: No History of Present Illness HPI 22-year-old female with a history of dental filling complains of pain since the filling. She has follow-up with her dentist in about 5 days. She took one 5 mg /325 mg tablet of Percocet about 4 hours ago and reports minimal pain relief. No fever or the pain radiates to the left ear and into the left anterior lower jaw. No trauma that she can remember. She started amoxicillin 2 days ago after going to the [facility]. PFSH Past Medical History Asthma: Yes Bipolar Disorder: Yes Anxiety: Yes Depression: Yes Diminished Hearing: No Psychiatric: Yes (PTSD, PANIC DISORDER) Respiratory: Yes (ASTHMA) Immunizations Current: Yes Ulcer: Yes ?: : 3 Para: 1 Miscarriage: 1 Past Surgical History Section: Yes Oral Surgery: Yes (wisdom teeth removal ) Social History Alcohol Use: No Tobacco Use: No Substance Use: No Allergies-Medications (Allergen,Severity, Reaction): Coded Allergies: No Known Allergies (Unverified Adverse Reaction, Unknown, 03/16/17) Reported Meds & Prescriptions Reported Meds & Active Scripts Active Percocet (Oxycodone-Acetaminophen) 5-325 mg Tab 1-2 Tab PO BID PRN Macrobid (Nitrofurantoin Monoh/Nitrofur Macro) 100 Mg Cap 100 Mg PO BID 10 Days Review of Systems General / Constitutional: No: Fever Eyes: No: Diploplia HENT: No: Ear Discharge, Earache Physical Exam Narrative GENERAL: 22 yo F, WNWD, NAD DENTITION: No focus of tenderness. Denition in good repair. SKIN: Warm and dry. HEAD: Normocephalic. EYES: No scleral icterus. No injection or drainage. NECK: Supple, trachea midline. No JVD or lymphadenopathy. CARDIOVASCULAR: Regular rate and rhythm without murmurs, gallops, or rubs. RESPIRATORY: Breath sounds equal bilaterally. No accessory muscle use. Data Data Last Documented VS Vital Signs Date Time Temp Pulse Resp B/P (MAP) Pulse Ox O2 Delivery O2 Flow Rate FiO2 03/16/17 01:06 03/16/17 00:30 98.6 68 16 98 Room Air Vital Signs Date Time Temp Pulse Resp B/P (MAP) Pulse Ox O2 Delivery O2 Flow Rate FiO2 03/16/17 01:06 03/16/17 00:30 98.6 68 16 138/73 (94) 98 Room Air Orders Orders Ed Discharge Order (03/16/17 01:05) MDM Medical Decision Making Medical Screen Exam Complete: Yes Emergency Medical Condition: Yes Medical Record Reviewed: Yes Differential Diagnosis dentlaiga, dental carry, fracture Narrative Course inferior alveolar nerve block follow up with dentist as scheduled Diagnosis Primary Impression: Dentalgia Referrals: Dentist Med/Other Pt SpecificInfo: Prescription(s) given Scripts Oxycodone-Acetaminophen (Percocet) 5-325 mg Tab 1-2 TAB PO BID Y for PAIN, #5 TAB 0 Refills Prov: Chase Flood MD 03/16/17 Disposition: 01 DISCHARGE HOME Condition: Stable Chase Flood MD Mar 16, 2017 01:05
== END 2017-03-16 01:15 | disposition home or self-care (01) ==
LOC: NEPD 00:28
DX: K08.89 Other specified disorders of teeth and supporting structures (principal)
CPT/HCPCS: 99283

== ENCOUNTER 2017-04-04 11:01 | Emergency (ER) | payer BC ==
[~2017-04-04 11:01] MED LIST changes: +PERC5TAB12 PO
--- NOTE | 2017-04-04 13:24 | PD ---
HPI Chief Complaint Contractions Date Seen: Apr 04, 2017 Travel History International Travel<30 Days: No Contact w/Intl Traveler<30Days: No Known Affected Area: No History of Present Illness HPI Patient is a 22 y/o at 30/4 weeks gestation that presents to the [facility] ED with a chief complaint of contractions that began the previous day around 6 AM. The contractions are irregular, occur every 2-3 hours, rated 7/ 10 in intensity, and occur in her lower abdomen and radiate up. She denies loss of fluid, vaginal bleeding, and has been feeling the baby move. She denies dysuria but states that she's currently being treated for a yeast infection. Otherwise, she states that her has been uncomplicated. Weeks Gestation: 30 Para: 1 : 3 Miscarriage: 1 History Past Medical History Narrative Medical Asthma on albuterol PRN Obstetric History Obstetric History First was a miscarriage in the first trimester Second was a at 39 weeks for regression of labor Past Surgical History Surgical History: No Previous Surgery Family History Family History: Negative Social History Alcohol Use: No Tobacco Use: No Substance Abuse: No Allergies-Medications (Allergen,Severity, Reaction): Coded Allergies: No Known Allergies (Unverified Adverse Reaction, Unknown, 03/16/17) Home Meds Active Scripts Oxycodone-Acetaminophen (Percocet) 5-325 mg Tab, 1-2 TAB PO BID Y for PAIN, #5 TAB 0 Refills Prov:Chase Flood MD 03/16/17 Nitrofurantoin Monohydrate Macrocrystals (Macrobid) 100 Mg Cap, 100 MG PO BID for Infection for 10 Days, CAP 0 Refills Prov:Fam Davis MD 12/10/16 Review of Systems General / Constitutional: No: Fever, Chills Physical Exam Narrative GENERAL: Well-nourished, well-developed patient. SKIN: Warm and dry. HEAD: Normocephalic and atraumatic. EYES: No scleral icterus. No injection or drainage. ENT: No nasal drainage noted. Mucous membranes pink. Airway patent. NECK: Supple, trachea midline. No JVD. CARDIOVASCULAR: Regular rate and rhythm without murmurs, gallops, or rubs. RESPIRATORY: Breath sounds equal bilaterally. No accessory muscle use. ABDOMEN/GI: Abdomen soft, non-tender, bowel sounds present, no rebound, no guarding Gravid to 30 weeks size GENITOURINARY: Membranes: intact Uterine Contractions: None FHT's: Category: I Baseline: 135 Reactive: accels present Variability: Moderate Decels: None EXTREMITIES: No cyanosis or edema. NEUROLOGICAL: Awake and alert. Motor and sensory grossly within normal limits. Five out of 5 muscle strength in all muscle groups. Normal speech. Data Data Vital Signs Reviewed: Yes Orders Orders Vital Signs (Adult) .ON ADMISSION (04/04/17 13:22) ^ Labor Status (04/04/17 13:22) Urinalysis - C+S If Indicated (04/04/17 13:22) ^ Non Stress Test (04/04/17 13:) [facility] Medical Record Reviewed: Yes Interpretation(s) 22 at 30/4 weeks gestation presents with Graves Horton contractions Plan 1. 30 weeks gestation of - monitoring reassuring at category I, monitored for at least 20 minutes -Continue routine care 2. [place] Horton -No true contractions seen on monitor -UA negative for infection -Continue treatment for yeast infection -Encourage hydration -Labor precautions provided Discharge home to follow up with OB provider within 1-2 weeks Diagnosis Diagnosis: Primary Impression: Graves Horton' contraction Disposition: 01 DISCHARGE HOME Condition: Stable Patient Instructions: Abdominal Pain in (ED), Labor (ED), Early Labor Signs (ED) Eko,Perla Coleman MD R2 Apr 04, 2017 13:24
[2017-04-04 16:09] LABS: BILIRUBIN, URINE NEG (NEG); BLOOD, URINE NEG (NEG); GLUCOSE,URINE NEG (NEG); KETONE, URINE NEG (NEG); MUCUS URINE MOD /lpf (OCC); NITRITE,URINE NEG (NEG); SQUAMOUS EPITHELIAL CELL URINE <1 /hpf (0-5); URINE COLOR YELLOW (YELLW/STRAW); URINE LEUKOCYTE ESTERASE TRACE (NEG)
== END 2017-04-04 16:58 | disposition home or self-care (01) ==
LOC: HOBED 11:01
DX: O47.03 False labor before 37 completed weeks of gestation, third trimester (principal); J45.909 Unspecified asthma, uncomplicated; Z3A.30 30 weeks gestation of pregnancy
CPT/HCPCS: 81001; 99283

== ENCOUNTER 2017-05-19 23:54 | Emergency (ER) | payer BC ==
--- NOTE | 2017-05-20 00:29 | PD ---
HPI Chief Complaint Leaking of fluid Travel History International Travel<30 Days: No Contact w/Intl Traveler<30Days: No Known Affected Area: No History of Present Illness HPI 22-year-old 011, IUP at 37.1 care complicated by PTSD, depression, bipolar disorder, asthma, obesity , prior delivery The patient presents reporting that she felt a gush of fluid was she was in the bathtub at about 1140, about 45 minutes ago. She reports she had no further leaking of fluid since the episode in the bathtub. She denies any regular or painful contractions. She reports good movement. She denies any vaginal bleeding. She has no other complaints tonight Weeks Gestation: 37 Para: 1 : 3 Miscarriage: 1 : 0 History Past Medical History Narrative Medical Obesity, asthma, PTSD, depression, bipolar disorder Obstetric History Obstetric History 011 Full-term delivery 1 SAB 1 Past Surgical History Narrative Surgical delivery 1 Family History Narrative Family History Asthma, cancer Social History Alcohol Use: No Tobacco Use: No Substance Abuse: No Allergies-Medications (Allergen,Severity, Reaction): Coded Allergies: No Known Allergies (Unverified Adverse Reaction, Unknown, 03/16/17) Home Meds Active Scripts Oxycodone-Acetaminophen (Percocet) 5-325 mg Tab, 1-2 TAB PO BID Y for PAIN, #5 TAB 0 Refills Prov:Chase Flood MD 03/16/17 Nitrofurantoin Monohydrate Macrocrystals (Macrobid) 100 Mg Cap, 100 MG PO BID for Infection for 10 Days, CAP 0 Refills Prov:Fam Davis MD 12/10/16 Review of Systems Except as stated in HPI: all other systems reviewed are Neg Physical Exam Narrative GENERAL: Well-nourished, well-developed patient. SKIN: Warm and dry. HEAD: Normocephalic and atraumatic. EYES: No scleral icterus. No injection or drainage. ENT: No nasal drainage noted. Mucous membranes pink. Airway patent. NECK: Supple, trachea midline. No JVD. CARDIOVASCULAR: Regular rate and rhythm without murmurs, gallops, or rubs. RESPIRATORY: Breath sounds equal bilaterally. No accessory muscle use. BREASTS: Deferred ABDOMEN/GI: Abdomen soft, non-tender, bowel sounds present, no rebound, no guarding Gravid GENITOURINARY: External Genitalia: intact and normal in appearance. Grossly normal BUS. No cervical or vaginal masses appreciated, grossly normal rugae, physiologic discharge, amniosure negative, SVE 1/thick/high/posterior FHT's: heart tones are in the 130s with moderate long-term variability, good accelerations, no decelerations noted. The patient is a reactive NST and category 1 heart rate tracing EXTREMITIES: No cyanosis or edema. BACK: Nontender without obvious deformity. NEUROLOGICAL: Awake and alert. Motor and sensory grossly within normal limits. Five out of 5 muscle strength in all muscle groups. Normal speech. Musculoskeletal: Grossly normal range of motion, gait, muscle strength Psychiatric: Grossly normal memory and affect MDM Plan Assessment/plan: 1. IUP at 37.1 2. Leaking of fluid: No evidence of ROM, negative amniosure. PROM precautions 3. No evidence of labor: Labor precautions 4. well-being: Reassuring testing with reactive NST and category 1 heart rate tracing. FHR reassuring and appropriate for gestational age. kick counts daily 5. History of bipolar disorder 6. History of PTSD 7. History of depression 8. History of asthma 9. Obesity 10. Follow-up with primary OB in 2-3 days or sooner if needed 11. History of prior delivery: Repeat section scheduled at 39 weeks Diagnosis Diagnosis: Primary Impression: 37 weeks gestation of Additional Impression: No leakage of amniotic fluid into vagina Disposition: 01 DISCHARGE HOME Condition: Jennifer Luong MD May 20, 2017 00:29
== END 2017-05-20 00:42 | disposition home or self-care (01) ==
LOC: HOBED 23:54
DX: O26.893 Other specified pregnancy related conditions, third trimester (principal); O99.343 Other mental disorders complicating pregnancy, third trimester; O99.213 Obesity complicating pregnancy, third trimester; O99.513 Diseases of the respiratory system complicating pregnancy, third trimester; Z3A.37 37 weeks gestation of pregnancy
CPT/HCPCS: 59025; 84112

== ENCOUNTER 2017-05-27 00:40 | Emergency (ER) | payer BC ==
--- NOTE | 2017-05-27 01:30 | PD ---
HPI Chief Complaint contractions upper abdominal pain for several hours Date Seen: May 27, 2017 Time Seen: 01:22 Travel History International Travel<30 Days: No Contact w/Intl Traveler<30Days: No Known Affected Area: No History of Present Illness HPI 22-year-old white female at 38 weeks previous for repeat section Dr. Siri dumont or so who presents with upper abdominal pain for several hours and she describes contractions, no bleeding or leakage of fluid. Baby is active. The heart rate tracing is reactive and there are no regular contractions Weeks Gestation: 38 Para: 1 : 3 History Past Medical History Narrative Medical Obese Obstetric History Obstetric History 1 for failure to progress ,1early loss Past Surgical History Narrative Surgical Social History Alcohol Use: No Tobacco Use: No Substance Abuse: No Allergies-Medications (Allergen,Severity, Reaction): Coded Allergies: No Known Allergies (Unverified Adverse Reaction, Unknown, 03/16/17) Home Meds Active Scripts Oxycodone-Acetaminophen (Percocet) 5-325 mg Tab, 1-2 TAB PO BID Y for PAIN, #5 TAB 0 Refills Prov:Chase Flood MD 03/16/17 Nitrofurantoin Monohydrate Macrocrystals (Macrobid) 100 Mg Cap, 100 MG PO BID for Infection for 10 Days, CAP 0 Refills Prov:Fam Davis MD 12/10/16 Review of Systems General / Constitutional: No: Fever, Weight Gain, Chills, Other Eyes: No: Diploplia, Blurred Vision, Visual changes, Pain, Photophobia HENT: No: Headaches, Vertigo, Lightheadedness Cardiovascular: No: Irregular Rhythm, Chest Pain or Discomfort, Palpitations, Tachycardia, Syncope, Varicosities, Edema, Cyanosis Respiratory: No: Cough, Short of Breath, Other Gastrointestinal: Abdominal Pain, No: Nausea, Vomiting, Diarrhea Genitourinary: No: Decreased Urinary Output, Oliguria Musculoskeletal: No: Limited ROM, Weakness, Cramping, Edema, Pain Skin: No Rash, No Itching, No Dryness, No Lumps, No Change in Pigmentation, No Change in Nails, No Alopecia, No Lesions Neurologic: No: Weakness, Dizziness, Syncope, Focal Abnormalities, Coordination Problem, Headache, Slurred Speech, Seizures Psychiatric: No: Depression, Suicidal Ideations, Homicidal Ideation Endocrine: No: Heat Intolerance, Cold Intolerance, Polydipsia, Polyuria, Other Physical Exam Narrative GENERAL: Well-nourished, obese patient. SKIN: Warm and dry. HEAD: Normocephalic and atraumatic. EYES: No scleral icterus. No injection or drainage. ENT: No nasal drainage noted. Mucous membranes pink. Airway patent. NECK: Supple, trachea midline. No JVD. CARDIOVASCULAR: Regular rate and rhythm without murmurs, gallops, or rubs. RESPIRATORY: Breath sounds equal bilaterally. No accessory muscle use. BREASTS: Bilateral exam showed no masses , no retractions, no nipple discharge. ABDOMEN/GI: Abdomen soft obese, non-tender, bowel sounds present, no rebound, no guarding Gravid to [-40] weeks size Fundal Height: [40-] GENITOURINARY: External Genitalia: intact and normal in appearance BUS glands: [-] Cervix: Posterior Dilatation: [-Closed] Effacement: [-] Thick Station: [-3] Presentation: [-vtx] Membranes: [intact ] Uterine Contractions: [-No regular] FHT's: Category: [1-] Baseline: [-133] Reactive: [R-] Variability: [mod-] Decels: [-none] EXTREMITIES: No cyanosis or edema. BACK: Nontender without obvious deformity. No CVA tenderness. NEUROLOGICAL: Awake and alert. Motor and sensory grossly within normal limits. Five out of 5 muscle strength in all muscle groups. Normal speech. MDM Interpretation(s) 22-year-old white female at 38 weeks previous for repeat C- section by Dr. Horner in the near future. She presents complaining of contractions and upper abdominal pain. No nausea vomiting and diarrhea. She is not jackie, heart rate tracing is reactive, cervix is closed thick and high. Plan Plan was offered the patient a pain shot for relief she did not want that. She' ll take Tylenol, increase her fluids, heating pad or hot bath for symptom relief follow-up with Dr. Horner Diagnosis Diagnosis: Primary Impression: Abdominal pain affecting Additional Impression: 38 weeks gestation of Disposition: DISCHARGE HOME Condition: Stable Roger Earl II, MD May 27, 2017 01:30
== END 2017-05-27 01:34 | disposition home or self-care (01) ==
LOC: HOBED 00:40
DX: O26.893 Other specified pregnancy related conditions, third trimester (principal); R10.10 Upper abdominal pain, unspecified; O34.219 Maternal care for unspecified type scar from previous cesarean delivery; Z3A.38 38 weeks gestation of pregnancy
CPT/HCPCS: 99283

== ENCOUNTER 2017-06-05 05:49 | Inpatient (IN) | payer BC ==
[~2017-06-05] VITALS: Ht 175.3 cm; Wt 122.0 kg
[2017-06-05] MEDS ORDERED: TYLE325T PO (06:04)
[2017-06-05] MEDS ORDERED: VENTAER INH (06:04)
[2017-06-05] MEDS ORDERED: MORPHINE SULFATE PF 5 MG/10 ML VIAL ONE (06:10)
[2017-06-05] MEDS ORDERED: ACETAMINOPHEN 1000 MG/100 ML 100 ML IV ONE (06:10)
[2017-06-05 06:19] VITALS: RESP 18
[2017-06-05 06:47] LABS: AUTOMATED NEUTROPHIL # 6.6 TH/MM3 (1.8-7.7); BASOPHIL # 0.1 TH/MM3 (0-0.2); BASOPHIL % 0.5 % (0.0-2.0); EOSINOPHIL # 0.1 TH/MM3 (0-0.4); HEMATOCRIT 33.4 % (35.0-46.0); LYMPHOCYTE # 3.4 TH/MM3 (1.0-4.8); MEAN CELL VOLUME 76.1 FL (80.0-100.0); MEAN CORPUSCULAR HGB CONC 32.8 % (32.0-36.0); MEAN PLATELET VOLUME 8.3 FL (7.0-11.0); MONO % 6.8 % (0.0-8.0); MONOCYTE # 0.7 TH/MM3 (0-0.9); NEUT % 60.7 % (16.0-70.0); PLATELET COUNT 226 TH/MM3 (150-450); RED BLOOD COUNT 4.39 MIL/MM3 (4.00-5.30); RED CELL DISTRIBUTION WIDTH 16.7 % (11.6-17.2); WHITE BLOOD COUNT 10.8 TH/MM3 (4.0-11.0)
[2017-06-05] MEDS: LACTATED RINGER'S 1000 ML IV SCH (07:14)
[2017-06-05] MEDS ORDERED: LACTATED RINGER'S 1000 ML IV ONE (07:15)
[2017-06-05] MEDS ORDERED: CITRIC ACID-SODIUM CITRATE LIQ 30 ML UDC PO SCH (07:15)
[2017-06-05] MEDS ORDERED: ceFAZolin 2 GM PREMIX 50 ML IV SCH (07:15)
[2017-06-05 07:23] LABS: BACTERIA, URINE MOD /hpf; BILIRUBIN, URINE NEG (NEG); BLOOD, URINE NEG (NEG); GLUCOSE,URINE NEG (NEG); KETONE, URINE 40 mg/dL (NEG); MUCUS URINE MOD /lpf (OCC); NITRITE,URINE NEG (NEG); PH, URINE 6.5 (5.0-8.5); SQUAMOUS EPITHELIAL CELL URINE 19 /hpf (0-5); URINE COLOR YELLOW (YELLW/STRAW); URINE LEUKOCYTE ESTERASE SMALL (NEG)
--- NOTE | 2017-06-05 07:33 | HHI.HP ---
HPI Chief Complaint elective induction Date Seen: Jun 05, 2017 Time Seen: 07:20 Travel History International Travel<30 Days: No Contact w/Intl Traveler<30Days: No Known Affected Area: No History of Present Illness HPI 22 yo for elective repeat CS at 39 weeks doing well. She had CS 11 months ago Weeks Gestation: 39 Para: 1 : 2 History Past Medical History Narrative Medical Bipolar, depression, anxiety, asthma Obstetric History Obstetric History cs 11 months ago Past Surgical History Narrative Surgical cs Family History Family History: Negative Social History Alcohol Use: No Tobacco Use: No Substance Abuse: No Allergies-Medications (Allergen,Severity, Reaction): Coded Allergies: No Known Allergies (Unverified Allergy, Unknown, 06/05/17) Home Meds Reported Medications Acetaminophen (Tylenol) 325 Mg Tab, 650 MG PO Q4H Y for PAIN SCALE 1 TO 4, TAB 0 Refills 06/05/17 Albuterol 18 GM Inh (Ventolin Hfa 18 GM Inh) 90 Mcg/Act Aer, 2 PUFF INH Q4H Y for SHORTNESS OF BREATH, #1 INHALER 0 Refills 06/05/17 Review of Systems Except as stated in HPI: all other systems reviewed are Neg Physical Exam Vital Signs Date Time Temp Pulse Resp B/P (MAP) Pulse Ox O2 Delivery O2 Flow Rate FiO2 06/05/17 06:19 18 Narrative GENERAL: Well-nourished, well-developed patient. SKIN: Warm and dry. HEAD: Normocephalic and atraumatic. EYES: No scleral icterus. No injection or drainage. ENT: No nasal drainage noted. Mucous membranes pink. Airway patent. NECK: Supple, trachea midline. No JVD. CARDIOVASCULAR: Regular rate and rhythm without murmurs, gallops, or rubs. RESPIRATORY: Breath sounds equal bilaterally. No accessory muscle use. BREASTS: Bilateral exam showed no masses , no retractions, no nipple discharge. ABDOMEN/GI: Abdomen soft, non-tender, bowel sounds present, no rebound, no guarding Gravid to [-] weeks size Fundal Height: [-] GENITOURINARY: External Genitalia: intact and normal in appearance BUS glands: [-] Cervix: [-] Dilatation: [-] Effacement: [-] Station: [-] Presentation: [-] Membranes: [intact or ruptured] Uterine Contractions: [-] FHT's: Category: [-] Baseline: [-] Reactive: [-] Variability: [-] Decels: [-] EXTREMITIES: No cyanosis or edema. BACK: Nontender without obvious deformity. No CVA tenderness. NEUROLOGICAL: Awake and alert. Motor and sensory grossly within normal limits. Five out of 5 muscle strength in all muscle groups. Normal speech. Caprini VTE Risk Assessment Caprini VTE Risk Assessment: No/Low Risk (score <= 1) Caprini Risk Assessment Model Point Value = 1 Point Value = 2 Point Value = 3 Point Value = 5 Age 41-60 Minor surgery BMI > 25 kg/m2 Swollen legs Varicose veins or History of unexplained or recurrent spontaneous Oral contraceptives or hormone replacement Sepsis (< 1 month) Serious lung disease, including pneumonia (< 1 month) Abnormal pulmonary function Acute myocardial infarction Congestive heart failure (< 1 month) History of inflammatory bowel disease Medical patient at bed rest Age 61-74 Arthroscopic surgery Major open surgery (> 45 min) Laparoscopic surgery (> 45 min) Malignancy Confined to bed (> 72 hours) Immobilizing plaster cast Central venous access Age >= 75 History of VTE Family history of VTE Factor V Leiden Prothrombin [id number] Lupus anticoagulant Anticardiolipin antibodies Elevated serum homocysteine Heparin-induced thrombocytopenia Other congenital or acquired thrombophilia Stroke (< 1 month) Elective arthroplasty Hip, pelvis, or leg fracture Acute spinal cord injury (< 1 month) Prophylaxis Regimen Total Risk Factor Score Risk Level Prophylaxis Regimen 0-1 Low Early ambulation 2 Moderate Order ONE of the following: *Sequential Compression Device (SCD) *Heparin 5000 units SQ BID 3-4 Higher Order ONE of the following medications: *Heparin 5000 units SQ TID *Enoxaparin/Lovenox 40 mg SQ daily (WT < 150 kg, CrCl > 30 mL/min) *Enoxaparin/Lovenox 30 mg SQ daily (WT < 150 kg, CrCl > 10-29 mL/min) *Enoxaparin/Lovenox 30 mg SQ BID (WT < 150 kg, CrCl > 30 mL/min) AND/OR *Sequential Compression Device (SCD) 5 or more Highest Order ONE of the following medications: *Heparin 5000 units SQ TID (Preferred with Epidurals) *Enoxaparin/Lovenox 40 mg SQ daily (WT < 150 kg, CrCl > 30 mL/min) *Enoxaparin/Lovenox 30 mg SQ daily (WT < 150 kg, CrCl > 10-29 mL/min) *Enoxaparin/Lovenox 30 mg SQ BID (WT < 150 kg, CrCl > 30 mL/min) AND *Sequential Compression Device (SCD) Data Data Vital Signs Reviewed: Yes Orders Orders Admit To Inpatient (06/05/17 ) Vital Signs (Adult) .ON ADMISSION (06/05/17 05:51) Activity Oob Ad Aileen (06/05/17 05:51) Heart (06/05/17 05:51) Urinary Catheter Management JASPAL.Q8H (06/05/17 05:51) ^ Preps (06/05/17 05:51) Scd / Bishop / Foot Pump JASPAL.QSHIFT (06/05/17 05:51) ^ Ultrasound For Locatio (06/05/17 05:51) Diet Npo (06/05/17 Breakfast) Type And Screen (06/05/17 05:51) Complete Blood Count With Diff (06/05/17 05:51) Urinalysis - C+S If Indicated (06/05/17 05:51) Drug Screen, Random Urine (06/05/17 05:51) Morphine Pf Inj (Duramorph Pf 0.5 Mg/Ml (06/05/17 06:10) Acetaminophen 1000 Mg/100 Ml (Ofirmev 10 (06/05/17 06:10) Lactated Ringer's 1000 Ml Inj (Lr 1000 M (06/05/17 07:15) Lactated Ringer's 1000 Ml Inj (Lr 1000 M (06/05/17 07:15) Citric Acid-Sodium Citrate Liq (Bicitra (06/05/17 07:15) Cefazolin 2 Gm Premix (Ancef 2 Gm Premix (06/05/17 07:15) Labs Laboratory Tests Test 06/05/17 06:00 06/05/17 06:14 Urine Opiates Screen NEG Urine Barbiturates Screen NEG Urine Amphetamines Screen NEG Urine Benzodiazepines Screen NEG Urine Cocaine Screen NEG Urine Cannabinoids Screen NEG White Blood Count 10.8 Red Blood Count 4.39 Hemoglobin 11.0 Hematocrit 33.4 Mean Corpuscular Volume 76.1 Mean Corpuscular Hemoglobin 25.0 Mean Corpuscular Hemoglobin Concent 32.8 Red Cell Distribution Width 16.7 Platelet Count 226 Mean Platelet Volume 8.3 Neutrophils (%) (Auto) 60.7 Lymphocytes (%) (Auto) 31.0 Monocytes (%) (Auto) 6.8 Eosinophils (%) (Auto) 1.0 Basophils (%) (Auto) 0.5 Neutrophils # (Auto) 6.6 Lymphocytes # (Auto) 3.4 Monocytes # (Auto) 0.7 Eosinophils # (Auto) 0.1 Basophils # (Auto) 0.1 CBC Comment DIFF FINAL Differential Comment Assessment/Plan Problem List: (1) 39 weeks gestation of ICD Codes: Z3A.39 - 39 weeks gestation of Status: Acute Damion Guzman MD Jun 05, 2017 07:33
[2017-06-05] MEDS ORDERED: ePHEDrine/NS 25 MG/5 ML SYRINGE ONE (08:07)
[2017-06-05] MEDS ORDERED: MIDAZOLAM HCL 2 MG/2 ML VIAL ONE (08:07)
--- NOTE | 2017-06-05 08:36 | PD.OB.DELI ---
Procedure Note Section Procedure Pre Op Diagnosis: (1) 39 weeks gestation of (2) delivery delivered Post Op Diagnosis: (1) delivery delivered (2) 39 weeks gestation of Performed by Damion Guzman Procedure: Repeat Low Transverse Sec Indication for delivery: Desired elective repeat Informed consent obtained: For anesthesia, For procedure Confirmed correct: Patient, Procedure, Time-out taken Anesthesia: Spinal Monitoring during procedure: Blood pressure monitoring, environmental monitoring specialist Urinary catheter: Inserted using sterile technique, To dependent drainage Sterile preparation: Duraprep Position: Supine with wedge to left side, Supine with safety belt applied Operative Features Skin Incision: Pfannenstiel Uterine Incision: Low transverse w/knife / blunt ext Membranes Ruptured: Artificially Presentation: Occiput anterior Delivery date: Jun 05, 2017 Delivery time: 07:51 Delivery of : Assisted (vacuum single pull) Infant: Female, Single One Minute : 9 Five Minute : 9 Placenta delivered: Intact Medications: Antibiotics Estimated blood loss: 700 Procedure tolerated: Well Maternal Condition: Stable Condition: Stable Damion Guzman MD Jun 05, 2017 08:36
[2017-06-05] MEDS ORDERED: KETOROLAC TROMETHAMINE 60 MG/2 ML (IM) VIAL IM PRN (08:45)
[2017-06-05] MEDS ORDERED: SIMETHICONE 80 MG CHEWABLE TAB PO PRN (08:45)
[2017-06-05] MEDS ORDERED: OXYTOCIN 30 UNITS-500ML PREMIX 500 ML IV ONE (08:45)
[2017-06-05] MEDS ORDERED: SODIUM CHLORIDE 0.9% FLUSH 10 ML FLUSH IV FLUSH PRN (08:45)
[2017-06-05] MEDS ORDERED: ONDANSETRON HCL 4 MG/2 ML VIAL ONE (08:58)
[2017-06-05] MEDS ORDERED: diphenhydrAMINE HCL 50 MG/ML VIAL ONE (08:59)
[2017-06-05] MEDS: SODIUM CHLORIDE 0.9% FLUSH 10 ML FLUSH IV FLUSH SCH ×2 (09:00→21:00)
[2017-06-05] MEDS ORDERED: OXYTOCIN 30 UNITS-500ML PREMIX 500 ML ONE (09:05)
[2017-06-05] MEDS ORDERED: KETOROLAC TROMETHAMINE 30 MG/ML (IVP) VIAL ONE (10:06)
[2017-06-05] MEDS ORDERED: KETOROLAC TROMETHAMINE 60 MG/2 ML (IM) VIAL IM ONE (10:09)
[2017-06-05] MEDS ORDERED: LACTATED RINGER'S 1000 ML INJ 1,000 ML IV ONE (12:00)
[2017-06-05] MEDS ORDERED: ePHEDrine/NS 25 MG/5 ML SYRINGE IV ONE (12:00)
[2017-06-05] MEDS ORDERED: DEXAMETHASONE SOD PHOS 4 MG/ML VIAL IV ONE (12:00)
[2017-06-05] MEDS ORDERED: ONDANSETRON HCL 4 MG/2 ML VIAL IV ONE (12:00)
[2017-06-05] MEDS ORDERED: PROMETHAZINE INJ 25 MG/ML VIAL IM PRN ×2 (12:00→12:45)
[2017-06-05] MEDS ORDERED: OXYTOCIN 10 UNIT/ML AMP IV ONE (12:00)
[2017-06-05] MEDS ORDERED: PANTOPRAZOLE SODIUM 40 MG VIAL IV PUSH SCH (13:04)
[2017-06-05] MEDS ORDERED: PHENOL 1.4% SOLN 180 ML BTL PRN (13:15)
[2017-06-05] MEDS ORDERED: LACTATED RINGER'S 1000 ML INJ 1,000 ML IV SCH (13:32)
--- NOTE | 2017-06-05 13:43 | MP ---
cc: RYAN GUZMAN DATE OF SURGERY 06/05/2017 PROCEDURE Repeat low transverse section. PREOPERATIVE DIAGNOSIS Previous section 11 months earlier. POSTOPERATIVE DIAGNOSIS Previous section 11 months earlier including elective repeat. SURGEON Dr. Ryan Guzman SENIOR ANALYST Cristopher Harris, MS-3 ANESTHESIA Spinal anesthesia was obtained Lauren Mackey CRNA COMPLICATIONS None FINDINGS Live female infant, 's of 9 and 9. PROCEDURE IN DETAIL After informed consent, the patient was taken to operating room where she was placed under spinal anesthesia and placed in the supine position left lateral tilt. Estrada catheter was placed to dependent gravity. After adequate anesthesia was assured, the patient was prepped and draped, a time-out was taken for the patient and the procedure. All instruments were present and in good working order. After a time-out was taken, a Pfannenstiel skin incision was carried sharply through the skin to the fascia. The fascia was nicked in the midline and the incision extended laterally using Flynn scissors. The rectus muscles dissected off the fascia with sharp and blunt dissection. Then the rectus muscle in the midline and the peritoneum was entered bluntly with a finger. The incision was extended laterally using blunt traction. A bladder blade was placed in the abdomen. Bladder flap was already low in the lower uterine segment. So then the low-transverse uterine incision was then made, carried sharply into the uterine cavity. Clear fluid was noted. The incision was extended laterally using blunt traction. A hand was placed in the uterus. The infant's head did not come through the incision despite multiple attempts of fundal pressure. A vacuum was applied to the occiput portion of the 's head just using gentle traction according to the manufactured recommended pressure. The was delivered with fundal pressure and start and gentle traction and a single pull. The head was grasped and the shoulders were delivered without difficulty. The nose and mouth were suctioned well. One minute cord clamping delay was performed. Once the was delivered and the cord was clamped and cut after a minute, it was handed pediatrics in attendance. Cord blood was collected. Placenta was delivered manually. The uterus exteriorized, wiped free from all remaining products of conception. He uterine incision was closed with a running locking stitch of chromic suture. A second suture was placed for hemostasis. Once good hemostasis was achieved, the uterus was placed back into the abdomen. The peritoneum was closed with a chromic suture. The fascia was closed with Vicryl suture. Subcutaneous and subcuticular stitches were placed. Lap and instrument counts were reported as correct. The patient tolerated the procedure well. The went to the nursery, mother went to the recovery room. MD WOLFGANG [place]/DEEPAK /8:26 AM /1:15 PM
[2017-06-05] MEDS ORDERED: EPIDURAL-NALOXONE HCL 0.4 MG/ML AMP IV PUSH PRN (13:45)
[2017-06-05] MEDS ORDERED: EPIDURAL-NO SYSTEMIC NARCOTICS PRN (13:45)
[2017-06-05] MEDS ORDERED: EPIDURAL-DO NOT ADMINISTER ANTICOAGULANTS PRN (13:45)
[2017-06-05] MEDS ORDERED: EPIDURAL-DIPHENHYDRAMINE HCL 50 MG CAP PO PRN (13:45)
[2017-06-05] MEDS ORDERED: EPIDURAL-DIPHENHYDRAMINE HCL 50 MG/ML VIAL IV PUSH PRN (13:45)
[2017-06-05] MEDS: oxyCODONE/ACETAMINOPHEN 5 MG/325 MG TAB PO PRN ×2 (18:14→21:23)
[2017-06-05] MEDS ORDERED: OXYTOCIN 30 UNITS-500ML PREMIX 500 ML IV PRN (18:45)
[2017-06-05] MEDS: IBUPROFEN 600 MG TAB PO PRN (21:24)
[2017-06-06] MEDS: oxyCODONE/ACETAMINOPHEN 5 MG/325 MG TAB PO PRN ×5 (04:31→22:34)
[2017-06-06 06:10] LABS: AUTOMATED NEUTROPHIL # 7.2 TH/MM3 (1.8-7.7); BASOPHIL % 0.3 % (0.0-2.0); EOSINOPHIL # 0.1 TH/MM3 (0-0.4); EOSINOPHIL % 0.8 % (0.0-4.0); HEMATOCRIT 25.1 % (35.0-46.0); HEMOGLOBIN 8.4 GM/DL (11.6-15.3); LYMPH % 23.6 % (9.0-44.0); LYMPHOCYTE # 2.6 TH/MM3 (1.0-4.8); MEAN CELL VOLUME 76.7 FL (80.0-100.0); MEAN CORPUSCULAR HEMOGLOBIN 25.8 PG (27.0-34.0); MEAN CORPUSCULAR HGB CONC 33.6 % (32.0-36.0); MEAN PLATELET VOLUME 8.5 FL (7.0-11.0); MONO % 9.1 % (0.0-8.0); NEUT % 66.2 % (16.0-70.0); PLATELET COUNT 180 TH/MM3 (150-450); RED BLOOD COUNT 3.27 MIL/MM3 (4.00-5.30); RED CELL DISTRIBUTION WIDTH 16.4 % (11.6-17.2); WHITE BLOOD COUNT 10.9 TH/MM3 (4.0-11.0)
--- NOTE | 2017-06-06 08:34 | HHI.OB ---
Subjective Post Day: 1 Remarks doing well. Tolerating diet and ambulating Objective Objective Remarks GENERAL: Well-nourished, well-developed patient. ABDOMEN/GI: Abdomen soft, non-tender. incision clean and dry Fundus: Firm, non-tender at umbilicus. GENITOURINARY: Light to moderate bleeding. EXTREMITIES: No cyanosis or edema, non-tender, without signs of DVT. Medications and IVs Current Medications Medications (Trade) Dose Ordered Sig/[place] Route Start Time Stop Time Status Last Admin Lactated Ringer's 1,000 ml @ 150 mls/hr Q6H40M IV 06/05/17 07:15 06/05/17 07:14 (Bicitra Liq) 30 ml YARDAGE ESTIMATOR PO 06/05/17 07:15 06/08/17 07:14 Cefazolin Sodium/ Dextrose 50 ml @ 100 mls/hr YARDAGE ESTIMATOR IV 06/05/17 07:15 06/08/17 07:14 06/05/17 07:14 Lactated Ringer's 1,000 ml @ 100 mls/hr Q10H IV 06/05/17 13:32 06/06/17 09:31 Oxytocin 500 ml @ 100 mls/hr UNSCH X1 PRN IV 06/05/17 18:45 06/06/17 18:44 (NS Flush) 2 ml BID IV FLUSH 06/05/17 09:00 (NS Flush) 2 ml UNSCH PRN IV FLUSH 06/05/17 08:45 (Mylicon Chew) 80 mg QID PRN PO 06/05/17 08:45 (Motrin) 600 mg Q6H PRN PO 06/05/17 08:45 06/05/17 21:24 (Toradol Inj) 30 mg Q6H PRN IM 06/05/17 08:45 06/06/17 08:44 (Percocet 5-325 Mg) 1 tab Q4H PRN PO 06/05/17 08:45 06/05/17 21:23 (Percocet 5-325 Mg) 2 tab Q4H PRN PO 06/05/17 08:45 06/06/17 04:31 (M-M-R Ii Inj) 0.5 ml ONCE ONCE SQ 06/06/17 16:00 06/06/17 16:01 (Boostrix Inj) 0.5 ml ONCE ONCE IM 06/06/17 16:00 06/06/17 16:01 06/05/17 21:25 (Phenergan Inj) 25 mg Q4H PRN IM 06/05/17 12:00 06/05/17 11:21 Miscellaneous Information NO SYSTEMIC NARCOTICS TO BE GIVEN FO... UNSCH PRN .XX 06/05/17 13:45 06/06/17 13:44 (Narcan Inj) 0.4 mg UNSCH PRN IV PUSH 06/05/17 13:45 06/06/17 13:44 (Benadryl Inj) 25 mg Q6H PRN IV PUSH 06/05/17 13:45 06/06/17 13:44 (Benadryl) 50 mg Q6H PRN PO 06/05/17 13:45 06/06/17 13:44 Miscellaneous Information ALL NURSING DEPARTMENTS UNSCH PRN .XX 06/05/17 13:45 06/06/17 13:44 Assessment/Plan Problem List: (1) 39 weeks gestation of ICD Codes: Z3A.39 - 39 weeks gestation of Status: Acute (2) delivery delivered ICD Codes: O82 - Encounter for delivery without indication Status: Acute Damion Guzman MD Jun 06, 2017 08:33
[2017-06-06] MEDS ORDERED: OXYC1TAB63 PO (08:35)
--- NOTE | 2017-06-06 08:35 | HHI.DCPOC ---
Discharge Care Plan Diagnosis: (1) delivery delivered Report Symptoms to Your Doctor -Temperature above 100.5 degrees -Redness, of incision or excessive or foul smelling drainage -Unusual pain or calf pain -Increased vaginal bleeding -Painful or difficulty urinating -Feelings of extreme sadness or anxiety after 2 weeks Goals to Promote Your Health * To prevent worsening of your condition and complications * To maintain your health at the optimal level Directions to Meet Your Goals Take your medications as prescribed Follow your dietary instruction Follow activity as directed Ensure plenty of rest for recovery Drink fluids for hydration Keep your appointments as scheduled Take your immunizations and boosters as scheduled If your symptoms worsen call your PCP, if no PCP go to Urgent Care Center or Emergency Room Smoking is Dangerous to Your Health. Avoid second hand smoke Call the 24-hour crisis hotline for domestic abuse at Damion Guzman MD Jun 06, 2017 08:35
[2017-06-06] MEDS: DOCUSATE SODIUM 100 MG CAP PO SCH ×2 (09:36→22:34)
[2017-06-06] MEDS: IBUPROFEN 600 MG TAB PO PRN ×2 (11:17→18:28)
[2017-06-06] MEDS ORDERED: DIPHTH/TETANUS/ACEL PERTUSSIS (BOOSTER) 0.5 ML VIAL/PFS IM ONE (16:00)
[2017-06-06] MEDS ORDERED: MEASLES, MUMPS, RUBELLA VACCINE 0.5 ML VIAL SQ ONE (16:00)
[2017-06-06 21:20] VITALS: BP 113/62; PULSE 58; RESP 20; TEMP 98; O2SAT 97
[2017-06-07] MEDS: IBUPROFEN 600 MG TAB PO PRN ×3 (00:45→16:47)
[2017-06-07] MEDS: oxyCODONE/ACETAMINOPHEN 5 MG/325 MG TAB PO PRN ×5 (03:50→20:32)
--- NOTE | 2017-06-07 07:17 | HHI.OB ---
Subjective Post Operative Day: 2 Remarks pain controlled, mod lochia, joceline po, +void/flatus, denies dizziness or lightheadedness Objective Vitals/I&O Vital Signs Date Time Temp Pulse Resp B/P (MAP) Pulse Ox O2 Delivery O2 Flow Rate FiO2 06/06/17 21:20 58 20 113/62 (79) 06/06/17 21:20 98.0 97 Result Diagram: 06/06/17 0539 Objective Remarks GENERAL: Well-nourished, well-developed patient. CARDIOVASCULAR: Regular rate and rhythm without murmurs, gallops, or rubs. RESPIRATORY: Breath sounds equal bilaterally. No accessory muscle use. ABDOMEN/GI: Abdomen soft, non-tender, bowel sounds present. Incision: Clean, dry and intact except superficial area of separation on the right Fundus: Firm, non-tender at umbilicus. GENITOURINARY: Light to moderate bleeding. EXTREMITIES: No cyanosis or edema, non-tender, without signs of DVT. Medications and IVs Current Medications Medications (Trade) Dose Ordered Sig/[place] Route Start Time Stop Time Status Last Admin Lactated Ringer's 1,000 ml @ 150 mls/hr Q6H40M IV 06/05/17 07:15 06/05/17 07:14 (Bicitra Liq) 30 ml FR[employer]ER PO 06/05/17 07:15 06/08/17 07:14 Cefazolin Sodium/ Dextrose 50 ml @ 100 mls/hr FR[employer]ER IV 06/05/17 07:15 06/08/17 07:14 06/05/17 07:14 (NS Flush) 2 ml BID IV FLUSH 06/05/17 09:00 (NS Flush) 2 ml UNSCH PRN IV FLUSH 06/05/17 08:45 (Mylicon Chew) 80 mg QID PRN PO 06/05/17 08:45 (Motrin) 600 mg Q6H PRN PO 06/05/17 08:45 06/07/17 00:45 (Percocet 5-325 Mg) 1 tab Q4H PRN PO 06/05/17 08:45 06/05/17 21:23 (Percocet 5-325 Mg) 2 tab Q4H PRN PO 06/05/17 08:45 06/07/17 03:50 (Phenergan Inj) 25 mg Q4H PRN IM 06/05/17 12:00 06/05/17 11:21 (Colace) 100 mg BID PO 06/06/17 09:00 06/06/17 22:34 Assessment/Plan Problem List: (1) 39 weeks gestation of ICD Codes: Z3A.39 - 39 weeks gestation of Status: Acute (2) delivery delivered ICD Codes: O82 - Encounter for delivery without indication Status: Acute Plan: encouraged pt to keep incision clean and dry and cover area of superficial separation cont po care Serge Mccarty MD Jun 07, 2017 07:17
[2017-06-07] MEDS: DOCUSATE SODIUM 100 MG CAP PO SCH ×2 (07:47→20:32)
[2017-06-07 08:00] VITALS: BP 110/58; PULSE 64; RESP 18; TEMP 98.1; O2SAT 99
[2017-06-07] MEDS: LACTATED RINGER'S 1000 ML IV SCH ×2 (19:15→19:37)
[2017-06-07] MEDS: SODIUM CHLORIDE 0.9% FLUSH 10 ML FLUSH IV FLUSH SCH (19:37)
[2017-06-07 20:00] VITALS: BP 112/69; PULSE 59; RESP 18; TEMP 98.1
[2017-06-08] MEDS: oxyCODONE/ACETAMINOPHEN 5 MG/325 MG TAB PO PRN ×4 (00:38→13:40)
[2017-06-08] MEDS: IBUPROFEN 600 MG TAB PO PRN ×2 (00:38→07:43)
[2017-06-08] MEDS: DOCUSATE SODIUM 100 MG CAP PO SCH (07:42)
[2017-06-08 08:40] VITALS: BP 112/68; PULSE 66; RESP 18; TEMP 98.8; TEMP 98.9
[2017-06-08] MEDS ORDERED: IBUP-232 PO (09:55)
[2017-06-08] MEDS ORDERED: CEPH500C PO (09:55)
--- NOTE | 2017-06-08 10:03 | HHI.DS ---
Admission Date Jun 05, 2017 at 05:49 Discharge Date: Jun 08, 2017 Admitting Diagnosis IUP @term, hx of previous Diagnosis: Delivery Date: Jun 05, 2017 : Repeat Infant: Female, Single Brief History 22 yo for elective repeat CS at 39 weeks doing well. She had CS 11 months ago Hospital Course pt had repeat . by POD 1 pt was voiding. by POD 2 pt was passing gas , she had superficial separation of her incision. steri-strips were applied. On POD 3, it appeared that pt was developing an early mild cellulitis on the left side of her incision and keflex was started. pt was afebrile and no drainage was noted. Pt Condition on Discharge: Stable Discharge Disposition: Discharge Home Discharge Instructions Diet Instructions: As Tolerated, No Restrictions Additional Diet Instructions: Drink at least 8 - 16 oz bottles of water a day Activities You Can Perform: Shower Only-No Bath Activities to Avoid: Prolonged Standing, Strenuous Activity, Sexual Activity Additional Activity Instruc.: No driving until off pain medications Do not lift anything heavier than your baby in an carrier Serge Mccarty MD Jun 08, 2017 10:03
[2017-06-08] MEDS ORDERED: CEPHALEXIN MONOHYDRATE 500 MG CAP PO SCH (12:00)
== END 2017-06-08 15:06 | disposition home or self-care (01) | DRG 765 ==
LOC: H2EB 05:49 → H1EA 10:36
PROVIDERS: ADMIT Obstetrics & Gynecology; ATTEND Obstetrics & Gynecology
PROC: 10D00Z1 Extraction of Products of Conception, Low, Open Approach (ICD-10-PCS; principal; 2017-06-05)
DX: O34.211 Maternal care for low transverse scar from previous cesarean delivery (principal); L03.311 Cellulitis of abdominal wall; F41.9 Anxiety disorder, unspecified; O99.344 Other mental disorders complicating childbirth; Z37.0 Single live birth; Z3A.39 39 weeks gestation of pregnancy; O99.52 Diseases of the respiratory system complicating childbirth; J45.909 Unspecified asthma, uncomplicated; O99.72 Diseases of the skin and subcutaneous tissue complicating childbirth
CPT/HCPCS: 59025; 80307; 81001; 85025; 86850; 86900; 86901; 87086; 90715; J0131; J0690; J1100; J1200; J1885; J2250; J2274; J2405; J2550; J2590; J3010; J7120

== ENCOUNTER 2017-07-09 19:18 | Emergency (ER) | payer BC ==
[~2017-07-09 19:18] MED LIST changes: +CEPH500C PO; +IBUP-232 PO; -MACR100C2 PO; +OXYC1TAB63 PO; -PERC5TAB12 PO; +TYLE325T PO; +VENTAER INH
[2017-07-09 19:42] VITALS: BP 145/72; PULSE 55; RESP 18; TEMP 98.7; O2SAT 98
--- NOTE | 2017-07-09 21:32 | PD ---
HPI Chief Complaint: Abdominal Pain Time Seen by Provider: 19:42 Travel History International Travel<30 days: No Contact w/Intl Traveler<30days: No Traveled to known affect area: No History of Present Illness HPI Pt is 22-year-old female presenting to emerge department for evaluation of abdominal pain. Patient states that she was at [facility] on Friday and was told she had gallstones. She was told that the pain did not improve or worsen to come to the emergency department. Patient reports pain in her right upper quadrant and radiates to her back, she reports nausea with no vomiting. She states that she has been taking Percocet for the pain and has felt itchy today. Her last dose of pain medication was at 1630. Patient denies any fever , chills, chest pain, shortness of breath. Symptom onset was gradual, symptom severity is moderate, there are no alleviating factors. Pain is exacerbated with food. PFSH Past Medical History Asthma: Yes Bipolar Disorder: Yes Anxiety: Yes Depression: Yes Diminished Hearing: No Psychiatric: Yes (PTSD, PANIC DISORDER) Respiratory: Yes (ASTHMA) Immunizations Current: Yes Ulcer: Yes ?: Not LMP: September 2015 : 3 Para: 1 Miscarriage: 1 Past Surgical History Section: Yes Oral Surgery: Yes (wisdom teeth removal ) Social History Alcohol Use: No Tobacco Use: No Substance Use: No Allergies-Medications (Allergen,Severity, Reaction): Coded Allergies: No Known Allergies (Unverified Allergy, Unknown, 06/05/17) Reported Meds & Prescriptions Reported Meds & Active Scripts Active Ibuprofen 600 Mg Tab 600 Mg PO Q6H PRN 10 Days Cephalexin 500 Mg Cap 500 Mg PO Q6HR 10 Days Oxycodone-Acetaminophen 5-325 (Oxycodone HCl/Acetaminophen) 5 Mg-325 Mg Tablet 1 Tab PO Q4H PRN Reported Tylenol (Acetaminophen) 325 Mg Tab 650 Mg PO Q4H PRN Ventolin Hfa 18 GM Inh (Albuterol Sulfate) 90 Mcg/Act Aer 2 Puff INH Q4H PRN Review of Systems Except as stated in HPI: all other systems reviewed are Neg Gastrointestinal: Positive: Nausea, Abdominal Pain Physical Exam Narrative GENERAL: Obese, well-developed, alert female. Presenting in no acute distress. SKIN: Warm and dry. HEAD: Normocephalic. EYES: No scleral icterus. No injection or drainage. NECK: Supple, trachea midline. No JVD or lymphadenopathy. CARDIOVASCULAR: Regular rate RESPIRATORY: No accessory muscle use. Data Data Last Documented VS Vital Signs Date Time Temp Pulse Resp B/P (MAP) Pulse Ox O2 Delivery O2 Flow Rate FiO2 07/09/17 19:42 98.7 55 18 145/72 (96) 98 MDM Medical Decision Making Medical Screen Exam Complete: Yes Emergency Medical Condition: Yes Interpretation(s) Vital Signs Date Time Temp Pulse Resp B/P (MAP) Pulse Ox O2 Delivery O2 Flow Rate FiO2 07/09/17 19:42 98.7 55 18 145/72 (96) 98 Differential Diagnosis Biliary colic versus cholecystitis versus obstruction versus metabolic abnormality versus other Narrative Course Patient is well-appearing 22-year-old female that was seen and evaluated in triage. Patient's vital signs are stable. Patient is awaiting bed placement. Patient was called be placed in a bed, she was no longer found in the emergency department. Patient left AGAINST MEDICAL ADVICE. Diagnosis Primary Impression: Left against medical advice Alessia Garcia Jul 09, 2017 21:32
== END 2017-07-10 01:29 | disposition left against medical advice (07) ==
LOC: NED 19:18
DX: Z53.21 Procedure and treatment not carried out due to patient leaving prior to being seen by health care provider (principal); R10.11 Right upper quadrant pain; J45.909 Unspecified asthma, uncomplicated; F31.9 Bipolar disorder, unspecified; Z79.899 Other long term (current) drug therapy
CPT/HCPCS: 99281